=== PATIENT | female | born 1965 | race Caucasian/White ===

== ENCOUNTER 2017-04-06 16:49 | Emergency (ER) | payer OTHER ==
[~2017-04-06] VITALS: Ht 170.2 cm; Wt 133.4 kg
[~2017-04-06 16:49] MED LIST: ALDACTONE50 MG PO; AMITRIPTYLINE25 MG PO; AMITRIPTYLINE50 M1 PO; APIDRA100 U/ML SUBQ; BACLOFEN20 M1 PO; CETIRIZINE HCL10 MG PO; CETIRIZINE10 MG PO; COLACE100 M1 PO; COREG12.5 MG PO; COREG25 MG PO; COZAAR100 MG PO; DIOVAN320 MG PO; DSS100 M1 PO; FERROUS SULFATE65 MG PO; GLUCOPHAGE850 MG PO; IRON TABLETS325 MG PO; LANTUS INS100 UNITS/ SUBQ; LASIX20 MG PO; LASIX40 MG PO; LEVAQUIN500 MG PO; LIDOCAINE VISC100 M1 PO; LIORESAL10 MG PO; LOTRIMIN 1%30 GM TP; LYRICA200 MG PO; LYRICA75 MG PO; MOTRIN400 MG PO; MS-CONTIN15 MG PO; NORCO 10/325 MG1 TAB PO; OMEPRAZOLE20 M1 PO; OYSCO 500 + D 51 TAB PO; OYSCO 500500 M1 PO; PAROXETINE20 M1 PO; PAXIL20 MG PO; PREDNISONE10 M1 PO; PREDNISONE10 MG PO; PRILOSEC20 M1 PO; PROMETHAZINE D240 ML PO; REMERON15 MG PO; TRAZADONE HYDR100 MG PO; VICODIN 5/500 M1 TAB PO; ZOLPIDEM PO; ZYRTEC10 M1 PO
[2017-04-06 18:17] VITALS: BP 124/76
--- NOTE | 2017-04-06 20:00 | NUR ---
15 YO FEMALEPATIENT PRESENTS TO ED WITH UNABLE TO VOID . PT STATES PAINON VOIDING . DENIES N/V/D; SKIN IS PINK/WARM/DRY; AAOX4 WITH EVEN AND STEADY GAIT; LUNGS CLEAR BL; HR EVEN AND REGULAR; PT DENIES ANY FEVER, CP, SOB, OR COUGH AT THIS TIME; PATIENT STATES PAIN OF 10/10 AT THIS TIME; VSS; PATIENT POSITIONED FOR COMFORT; HOB ELEVATED; BEDRAILS UP X2; BED DOWN. ER MD MADE AWARE OF PT STATUS.
[2017-04-06] MEDS ORDERED: KETOROLAC 60 MG/2 ML VIAL IM ONE (20:10)
[2017-04-06] MEDS ORDERED: cefTRIAXone 1,000 MG in LIDOCAINE 1% ED 2.1 ML IM ONE (20:10)
[2017-04-06] MEDS ORDERED: PHENAZOPYRIDINE 100 MG TAB PO ONE (20:15)
--- NOTE | 2017-04-06 20:49 | NUR ---
Patient discharged with v/s stable. Written and verbal after care instructions given and explained. Patient alert, oriented and verbalized understanding of instructions. Ambulatory with steady gait. All questions addressed prior to discharge. ID band removed. Patient advised to follow up with PMD. Rx of MOTRIN, CIPRO, PYRIDIUM given. Patient educated on indication of medication including possible reaction and side effects. Opportunity to ask questions provided and answered.
[2017-04-06 20:57] VITALS: BP 124/76
== END 2017-04-06 23:49 | disposition home or self-care (01) ==
LOC: MED 16:49
DX: N12 Tubulo-interstitial nephritis, not specified as acute or chronic (principal); J45.909 Unspecified asthma, uncomplicated; I50.9 Heart failure, unspecified; E11.9 Type 2 diabetes mellitus without complications; I10 Essential (primary) hypertension
CPT/HCPCS: 81001; 81025; 87086; 87186; 96372; 99284; J0696; J1885; J2001; Q0163

== ENCOUNTER 2017-04-08 16:11 | Emergency (ER) | payer OTHER ==
[~2017-04-08] VITALS: Ht 170.2 cm; Wt 133.4 kg
[2017-04-08 16:41] VITALS: BP 143/84
--- NOTE | 2017-04-08 17:25 | NUR ---
Patient ambulated to bed 03.
[2017-04-08] MEDS ORDERED: MORPHINE SULFATE 5 MG/ML VIAL IM ONE (17:30)
[2017-04-08] MEDS ORDERED: ONDANSETRON 4 MG TAB PO ONE (17:30)
--- NOTE | 2017-04-08 17:30 | NUR ---
PT PRESENT TO ED W/ C/O BACK PAIN RADIATING TO PELVIC AREA;PRESSURE CONSTANT PAIN STARTED FRIDAY, WAS SEEN HERE LAST FRIDAY FOR THE SAME PROBLEM, BLACK TARRY STOOLS SINCE FRIDAY, HEAD ACHE 08/26, SOB X 2WK. DENIES N/V/D; SKIN IS PINK/WARM/DRY; AAOX4 WITH EVEN AND STEADY GAIT; LUNGS CLEAR BL; HR EVEN AND REGULAR; PT DENIES ANY FEVER/CP AT THIS TIME; PATIENT POSITIONED FOR COMFORT; HOB ELEVATED; BEDRAILS UP X2; BED DOWN. ALL MONITORS IN PLACED;GLAZE SUPERVISOR AT BEDSIDE.
[2017-04-08] MEDS ORDERED: ONDANSETRON 4 MG/2 ML VIAL IVP ONE (17:45)
[2017-04-08] MEDS ORDERED: MORPHINE SULFATE 4 MG/ML SYR IVP ONE (17:45)
[2017-04-08] MEDS ORDERED: diphenhydrAMINE 50 MG/ML VIAL IVP ONE (18:40)
[2017-04-08 19:23] VITALS: BP 137/78
== END 2017-04-08 19:23 | disposition home or self-care (01) ==
LOC: MED 16:11
DX: N12 Tubulo-interstitial nephritis, not specified as acute or chronic (principal); E11.9 Type 2 diabetes mellitus without complications; I50.9 Heart failure, unspecified; I10 Essential (primary) hypertension
CPT/HCPCS: 36415; 80053; 81001; 81025; 83690; 85025; 96374; 96375; 99284; J1200; J2270; J2405

== ENCOUNTER 2017-06-24 15:39 | Emergency (ER) | payer OTHER ==
[~2017-06-24] VITALS: Ht 172.7 cm; Wt 135.2 kg
[~2017-06-24 15:39] MED LIST changes: -ALDACTONE50 MG PO; -AMITRIPTYLINE25 MG PO; -AMITRIPTYLINE50 M1 PO; +APID SUBQ; -APIDRA100 U/ML SUBQ; +BACL20TA4 PO; -BACLOFEN20 M1 PO; +CALC500T19 PO; +CARV12.5 PO; -CETIRIZINE HCL10 MG PO; -CETIRIZINE10 MG PO; -COLACE100 M1 PO; -COREG12.5 MG PO; -COREG25 MG PO; -COZAAR100 MG PO; -DIOVAN320 MG PO; +DOCU-67 PO; -DSS100 M1 PO; -FERROUS SULFATE65 MG PO; +FURO-570 PO; -GLUCOPHAGE850 MG PO; +HYDR-4452 PO; +IBUP-1842 PO; -IRON TABLETS325 MG PO; +IRON65TA10 PO; -LANTUS INS100 UNITS/ SUBQ; +LANTUS SUBQ; -LASIX20 MG PO; -LASIX40 MG PO; -LEVAQUIN500 MG PO; +LEVO500T6 PO; -LIDOCAINE VISC100 M1 PO; -LIORESAL10 MG PO; +LOSA100T1 PO; +LOTC TP; -LOTRIMIN 1%30 GM TP; -LYRICA200 MG PO; -LYRICA75 MG PO; +METF850T PO; +MIRT15TA PO; -MOTRIN400 MG PO; -MS-CONTIN15 MG PO; +MSCON15 PO; -NORCO 10/325 MG1 TAB PO; +OMEP20EC6 PO; -OMEPRAZOLE20 M1 PO; -OYSCO 500 + D 51 TAB PO; -OYSCO 500500 M1 PO; +PARO-42 PO; -PAROXETINE20 M1 PO; -PAXIL20 MG PO; +PRED10TA5 PO; -PREDNISONE10 M1 PO; -PREDNISONE10 MG PO; +PREG200C PO; -PRILOSEC20 M1 PO; -PROMETHAZINE D240 ML PO; -REMERON15 MG PO; +SPIR50TA PO; -TRAZADONE HYDR100 MG PO; -VICODIN 5/500 M1 TAB PO; -ZOLPIDEM PO; -ZYRTEC10 M1 PO; +[UNRECOGNIZED DRUG - CODE] PO
[2017-06-24 15:59] VITALS: BP 124/78
--- NOTE | 2017-06-24 16:30 | NUR ---
PT AMBULATED TO ER BED 3.
--- NOTE | 2017-06-24 16:35 | NUR ---
51/F PRESENT TO ER C/O RIGHT LOWER MOLAR PAIN X 2 DAYS, HAS NOT MADE APPT WITH DENTIST YET CHRONIC LOWER BACK PAIN X 10 YRS---DENIES DYSURIA, DENIES INCONTINENCE ADDS IS SEEING A PAIN SPECIALIST BUT DOES NOT WANT AN EPIDURAL. AAOx4, PERRLA, BREATHING EVEN AND UNLABORED. ERMD NOTIFIED OF PATIENT STATUS.
--- NOTE | 2017-06-24 16:58 | NUR ---
Dr. Nieves evaluating patient at bedside.
[2017-06-24] MEDS ORDERED: KETOROLAC 60 MG/2 ML VIAL IM ONE (17:25)
--- NOTE | 2017-06-24 17:45 | NUR ---
Patient discharged with v/s stable. Written and verbal after care instructions given and explained. Patient alert, oriented and verbalized understanding of instructions. Ambulatory with steady gait. All questions addressed prior to discharge. ID band removed. Patient advised to follow up with PMD. Rx of NORCO 5/325MG AND MOTRIN 800MG TABLET given. Patient educated on indication of medication including possible reaction and side effects. Opportunity to ask questions provided and answered.
[2017-06-24 17:46] VITALS: BP 128/72
== END 2017-06-24 17:45 | disposition home or self-care (01) ==
LOC: MED 15:39
DX: K08.89 Other specified disorders of teeth and supporting structures (principal); M54.5 Low back pain; I11.0 Hypertensive heart disease with heart failure; I50.9 Heart failure, unspecified
CPT/HCPCS: 81002; 81025; 82948; 96372; 99283; J1885

== ENCOUNTER 2018-02-05 20:52 | Emergency (ER) | payer OTHER ==
[~2018-02-05] VITALS: Ht 170.2 cm; Wt 131.1 kg
[~2018-02-05 20:52] MED LIST changes: +ACET-787 PO; +CETI10TA71 PO; +DOCU-299 PO; -DOCU-67 PO; +FERR-13 PO; -HYDR-4452 PO; -IRON65TA10 PO; -[UNRECOGNIZED DRUG - CODE] PO
[2018-02-05 20:58] VITALS: BP 146/59
--- NOTE | 2018-02-05 21:03 | NUR ---
PT RETURNED TO LOBBY. URINE SAMPLE COLLECTED.
--- NOTE | 2018-02-05 21:05 | NUR ---
2104: PT AMBULATED TO BED 11
--- NOTE | 2018-02-05 21:29 | NUR ---
PATIENT PRESENTS TO ED WITH C/O VAGINAL PAIN AND PAINFUL URINATION X 1 WEEK DENIES N/V/D; AAOX4 WITH EVEN AND STEADY GAIT; LUNGS CLEAR BL; HR EVEN AND REGULAR; PT DENIES ANY FEVER, CP, SOB, OR COUGH AT THIS TIME; PATIENT STATES PAIN OF 10/10 AT THIS TIME; VSS; PATIENT POSITIONED FOR COMFORT; HOB ELEVATED; BEDRAILS UP X2; BED DOWN. ER MD MADE AWARE OF PT STATUS.
[2018-02-05] MEDS ORDERED: MORPHINE SULFATE 4 MG/ML SYR IVP ONE (22:20)
[2018-02-05] MEDS ORDERED: LEVOFLOXACIN 500 MG/D5W PREMIX 100 ML IV ONE (23:30)
[2018-02-05] MEDS ORDERED: metroNIDAZOLE 500 MG/NS PREMIX 100 ML IV ONE (23:30)
[2018-02-06] MEDS ORDERED: MORPHINE SULFATE 4 MG/ML SYR IVP ONE (01:05)
[2018-02-06 01:49] VITALS: BP 140/59
--- NOTE | 2018-02-06 01:49 | NUR ---
DC BY DR GAONA. Patient discharged with v/s stable. Written and verbal after care instructions given and explained. Patient alert, oriented and verbalized understanding of instructions. Ambulatory with steady gait. All questions addressed prior to discharge. ID band removed. Patient advised to follow up with PMD. Rx of DOXYCYCLINE 100MG, NAPROSYN 500MG given. Patient educated on indication of medication including possible reaction and side effects. Opportunity to ask questions provided and answered.
== END 2018-02-06 01:49 | disposition home or self-care (01) ==
LOC: MED 20:52
DX: N76.0 Acute vaginitis (principal); I50.9 Heart failure, unspecified; I10 Essential (primary) hypertension; M79.7 Fibromyalgia; E78.00 Pure hypercholesterolemia, unspecified
CPT/HCPCS: 36415; 87070; 87210; 96365; 96367; 96375; 96376; 99285; J1956; J2270; J3490

== ENCOUNTER 2018-04-02 17:02 | Emergency (ER) | payer OTHER ==
[~2018-04-02] VITALS: Ht 170.2 cm; Wt 129.7 kg
[2018-04-02 17:08] VITALS: BP 152/93
--- NOTE | 2018-04-02 17:11 | NUR ---
PT AMBULATES TO ER BED 8. REPORT GIVEN TO BHARATI MOSLEY
--- NOTE | 2018-04-02 17:12 | NUR ---
52/F BIB FAMILY C/O RT KNEE PAIN RADIATING TO RT ANKLE FOR 5 DAYS. DENIES INJURY. HX: DM, HTN, FIBROMYALGIA. DENIES N/V/D; SKIN IS PINK/WARM/DRY; AAOX4 WITH EVEN AND STEADY GAIT; LUNGS CLEAR BL. PT DENIES ANY FEVER, CP, SOB, OR COUGH AT THIS TIME; PATIENT STATES PAIN OF 7/10 AT THIS TIME. PATIENT POSITIONED FOR COMFORT; HOB ELEVATED; BEDRAILS UP X2; BED DOWN. ER MADE AWARE OF PT STATUS. Addendum: 04/02/18 at 1752 by [email or web address] R KNEE& R LLG SURG IN 2013
--- NOTE | 2018-04-02 17:19 | NUR ---
Patient being evaluated by DR MANLEY at bedside.
[2018-04-02] MEDS ORDERED: fentaNYL 0.05 MG/ML VIAL IM ONE (17:30)
--- NOTE | 2018-04-02 18:01 | NUR ---
Patient being reevaluated by DR MANLEY at bedside.
[2018-04-02 18:06] VITALS: BP 134/74
--- NOTE | 2018-04-02 18:06 | NUR ---
Patient discharged with v/s stable. Written and verbal after care instructions given and explained. Patient alert, oriented and verbalized understanding of instructions. Ambulatory with steady gait. All questions addressed prior to discharge. ID band removed. Patient advised to follow up with PMD. Rx of TRAMADOL, GABAPENTIN & MEDROL given. Patient educated on indication of medication including possible reaction and side effects. Opportunity to ask questions provided and answered.
== END 2018-04-02 18:06 | disposition home or self-care (01) ==
LOC: MED 17:02
DX: M54.41 Lumbago with sciatica, right side (principal); M54.42 Lumbago with sciatica, left side; I50.9 Heart failure, unspecified; E11.9 Type 2 diabetes mellitus without complications; I10 Essential (primary) hypertension; M79.7 Fibromyalgia; Z79.899 Other long term (current) drug therapy; Z79.84 Long term (current) use of oral hypoglycemic drugs
CPT/HCPCS: 81002; 81025; 82948; 96372; 99283; J3010

== ENCOUNTER 2018-08-09 18:08 | Emergency (ER) | payer OTHER ==
[~2018-08-09] VITALS: Ht 170.2 cm; Wt 115.7 kg
[2018-08-09 18:15] VITALS: BP 143/72
--- NOTE | 2018-08-09 18:25 | NUR ---
Patient ambulated to bed 8. RN evaluating patient at bedside.
--- NOTE | 2018-08-09 18:34 | NUR ---
52 YO F BIB SELF W/ C/O "FOAMING" URINATION AND FREQUENCY X 4 DAYS. DENIES DYSURIA. DENIES FEVERS. REPORTS FEELING NAUSEOUS, DENIES VOMITING. SAW PMD LAST WEEK FOR SAME REASON, GIVEN 3 DAY ANTIBIOTIC REGIMEN WHICH SHE FINISHED, WITH NO RELIEF.PT REPORTS HAVING A RUNNY NOSE/POSTNASAL DRIP X3DAYS AND BACK PAIN X6MO. PT RECEIVED FLU SHOT LAST WEEK. LS CLEAR THROUGHOUT, ABD SOFT NON TENDER. HX DM, FIBROMYALGIA, HTN RX ZOLPIDEM, TARTRATE, CARVEDILOL, INVOKANA, HCL, HYDROXYZINE, BACLOFEN, ABILIFY, HYDROCODONE, BUPROPION, CALCIUM CITRATE, LYRICA, RAMIPEXOLE, OMEPRAZOLE
--- NOTE | 2018-08-09 19:15 | NUR ---
Lisandra edge in [facility] - 08/09/18 at 2103 by MEDKARANV QUINTINVIEJose REPORT FROM LUTHER GALLARDO TRANSFER OF CARE AT THIS TIME.
--- NOTE | 2018-08-09 19:19 | NUR ---
REPORT GIVEN TO BECKY CALABRESE FOR CONTINUITY OF CARE
--- NOTE | 2018-08-09 19:20 | NUR ---
RECEIVED REPORT FROM LUTHER CALABRESE. TRANSFER OF CARE AT THIS TIME.
--- NOTE | 2018-08-09 19:21 | NUR ---
PATIENT RESTING AT THIS TIME. NO SIGNS OF DISTRESS.
--- NOTE | 2018-08-09 19:57 | NUR ---
Dr. Morton evaluating patient at bedside.
[2018-08-09 20:44] LABS: APPEARANCE,URINE CLEAR (CLEAR); BILIRUBIN,URINE NEGATIVE (NEGATIVE); BLOOD, URINE TRACE-I (NEGATIVE); COLOR,URINE YELLOW (YELLOW); LEUKOCYTE ESTERASE ,URINE NEGATIVE (NEGATIVE); NITRITE, URINE NEGATIVE (NEGATIVE); UGLUCOSE 2+ (NEGATIVE)
[2018-08-09 20:53] LABS: RBC,URINE 0-5 (RARE) /HPF (0-5); YEAST,URINE Few /HPF (None Seen)
[2018-08-09 21:05] VITALS: BP 138/80
--- NOTE | 2018-08-09 21:05 | NUR ---
Patient discharged with v/s stable. Written and verbal after care instructions given and explained. Patient alert, oriented and verbalized understanding of instructions. Ambulatory with steady gait. All questions addressed prior to discharge. ID band removed. Patient advised to follow up with PMD. Rx of KEFLEX 500MG AND AFRIN ORIGINAL 0.05% NASAL SPRAY given. Patient educated on indication of medication including possible reaction and side effects. Opportunity to ask questions provided and answered.
== END 2018-08-09 21:05 | disposition home or self-care (01) ==
LOC: MED 18:08
DX: N39.0 Urinary tract infection, site not specified (principal); J06.9 Acute upper respiratory infection, unspecified; R11.0 Nausea; E11.9 Type 2 diabetes mellitus without complications; I50.9 Heart failure, unspecified; I11.0 Hypertensive heart disease with heart failure; Z79.899 Other long term (current) drug therapy; Z79.4 Long term (current) use of insulin
CPT/HCPCS: 81001; 81025; 87086; 99284

== ENCOUNTER 2018-08-15 16:16 | Emergency (ER) | payer OTHER ==
[~2018-08-15] VITALS: Ht 170.2 cm; Wt 117.9 kg
[2018-08-15] MEDS ORDERED: LEVOFLOXACIN 500 MG/D5W PREMIX 100 ML IV ONE (16:35)
[2018-08-15] MEDS ORDERED: KETOROLAC 30 MG/ML VIAL IVP ONE (16:35)
[2018-08-15] MEDS ORDERED: NACL 0.9% 1,000 ML IV ONE (16:35)
[2018-08-15 17:01] VITALS: BP 135/92
[2018-08-15 17:28] VITALS: BP 135/92
[2018-08-15 17:34] LABS: APPEARANCE,URINE CLEAR (CLEAR); BASOPHILS % (AUTO) 0.4 % (0.0-2.0); BILIRUBIN,URINE NEGATIVE (NEGATIVE); BLOOD, URINE NEGATIVE (NEGATIVE); COLOR,URINE YELLOW (YELLOW); EOSINOPHILS # (AUTO) 0.2 K/uL (0-0.4); EOSINOPHILS % (AUTO) 2.5 % (0.0-4.0); HEMATOCRIT 39.5 % (36-48); HEMOGLOBIN 12.7 g/dL (12.0-16.0); LEUKOCYTE ESTERASE ,URINE NEGATIVE (NEGATIVE); LYMPHOCYTES # (AUTO) 2.3 K/uL (2.5-16.5); LYMPHOCYTES % (AUTO) 29.9 % (20.5-51.1); MEAN CORPUSCULAR HEMOGLOBIN 27 pg (27-31); MEAN CORPUSCULAR HGB CONC 32 g/dL (33-37); MEAN CORPUSCULAR VOLUME 84.8 fL (80-94); MONOCYTES # (AUTO) 0.5 K/uL (0.8-1.0); MONOCYTES % (AUTO) 6.4 % (1.7-9.3); NEUTROPHILS # (AUTO) 4.7 K/uL (1.8-7.7); NEUTROPHILS % (AUTO) 60.8 % (42.2-75.2); NITRITE, URINE NEGATIVE (NEGATIVE); PLATELET COUNT (AUTO) 231 K/uL (140-450); RED BLOOD CELL COUNT(AUTO) 4.66 MIL/uL (4.20-5.40); RED CELL DISTRIBUTION WIDTH 16.9 % (11.6-13.7); UGLUCOSE 3+ (NEGATIVE); WHITE BLOOD COUNT (AUTO) 7.8 K/uL (4.8-10.8)
[2018-08-15 17:39] LABS: ANION GAP 9.9 (8-16); CARBON DIOXIDE 30.9 mmol/L (21-32); POTASSIUM 3.8 mmol/L (3.5-5.1)
[2018-08-15 17:45] LABS: ALBUMIN 3.3 g/dL (3.4-5.0); TOTAL BILIRUBIN 0.2 mg/dL (0.0-1.0)
== END 2018-08-15 17:28 | disposition home or self-care (01) ==
LOC: MED 16:16
DX: J06.9 Acute upper respiratory infection, unspecified (principal); I11.0 Hypertensive heart disease with heart failure; I50.9 Heart failure, unspecified; E11.9 Type 2 diabetes mellitus without complications; Z79.899 Other long term (current) drug therapy
CPT/HCPCS: 36415; 80053; 81003; 82150; 82948; 83690; 85025; 99284

== ENCOUNTER 2019-06-17 13:22 | Emergency (ER) | payer OTHER ==
[~2019-06-17] VITALS: Ht 170.2 cm; Wt 132.9 kg
[~2019-06-17 13:22] MED LIST changes: -OMEP20EC6 PO; +OMEP20EC9 PO
[2019-06-17 13:34] VITALS: BP 145/98
--- NOTE | 2019-06-17 13:38 | NUR ---
PT TO WAIT IN ER LOBBY FOR CLEAN BED. VSS. AA0X4
--- NOTE | 2019-06-17 13:47 | NUR ---
Patient taken to bed 4
--- NOTE | 2019-06-17 13:54 | NUR ---
BILATERAL KNEE AND BACK OF HEAD PAIN AFTER FALL X 2 DAYS AGO. DENEIS TAKING ANY BLOOD THINNERS. DENIES LOC. PAIN 06/26. DENIES N/V/D; SKIN IS PINK/WARM/DRY; VSS; PATIENT POSITIONED FOR COMFORT; HOB ELEVATED; BEDRAILS UP X1; BED DOWN. ER MD MADE AWARE OF PT STATUS.
[2019-06-17] MEDS ORDERED: MORPHINE SULFATE 4 MG/ML SYR IM ONE (15:55)
--- NOTE | 2019-06-17 16:35 | NUR ---
Patient discharged with v/s stable. Written and verbal after care instructions given and explained. Patient alert, oriented and verbalized understanding of instructions. Ambulatory with steady gait. All questions addressed prior to discharge. ID band removed. Patient advised to follow up with PMD. Rx of Hudgins 5mg-325mg given. Patient educated on indication of medication including possible reaction and side effects. Opportunity to ask questions provided and answered.
[2019-06-17 16:36] VITALS: BP 138/79
== END 2019-06-17 16:35 | disposition home or self-care (01) ==
LOC: MED 13:22
DX: M25.561 Pain in right knee (principal); M25.562 Pain in left knee; M79.10 Myalgia, unspecified site; I11.0 Hypertensive heart disease with heart failure; I50.9 Heart failure, unspecified; E11.9 Type 2 diabetes mellitus without complications; Z98.890 Other specified postprocedural states; Z79.4 Long term (current) use of insulin; Z79.899 Other long term (current) drug therapy; Z98.84 Bariatric surgery status; W19.XXXA Unspecified fall, initial encounter; Y93.89 Activity, other specified; Y92.89 Other specified places as the place of occurrence of the external cause; Y99.8 Other external cause status
CPT/HCPCS: 73562; 81002; 81025; 96372; 99283; J2270; Q0092

== ENCOUNTER 2020-09-26 16:08 | Inpatient (IN) | payer OTHER, SELFPAY ==
[~2020-09-26] VITALS: Ht 170.2 cm; Wt 121.6 kg
[~2020-09-26 16:08] MED LIST changes: -ACET-787 PO; +HYDR-5191 PO; +MIRT-91 PO; -MIRT15TA PO
--- NOTE | 2020-09-26 16:30 | NUR ---
Patient taken to wheelchair by tech. RN evaluating patient at bedside.
[2020-09-26 16:32] VITALS: BP 89/44
[2020-09-26] MEDS ORDERED: NACL 0.9% 2,000 ML IV ONE (16:40)
[2020-09-26] MEDS ORDERED: cefTRIAXone 1,000 MG in DEXT 5% MINI-BAG PLUS 50 ML IV ONE (16:40)
[2020-09-26] MEDS ORDERED: cefTRIAXone 1,000 MG VIAL ONE (16:46)
--- NOTE | 2020-09-26 16:50 | NUR ---
55 Y/O FEMALE PRESENTS TO ED C/C ABD PAIN AND GEN WEAKNESS X3 DAYS. PATIENT UNABLE TO AMBULATE D/T DIZZINESS AND WEAKNESS. DENIES COUGH, N/V/D. SUBJECTIVE FEVER. AAOX4.SPEACH IS MUMBLED/ DIFFICULT TO UNDERSTAND, INCREASED WOB, TACHYPNIC/TACHYCARDIC, EYES PERRLA. BLOOD GLUCOSE ON ADMISSION READS HIGH, DR. URBANO NOTIFIED. PMH:HTN, DM, fibromyalgia, sleep apnea, CHF NKDA
[2020-09-26 16:55] LABS: HEMATOCRIT 37.8 % (36-48); HEMOGLOBIN 11.6 g/dL (12.0-16.0); MEAN CORPUSCULAR HEMOGLOBIN 28 pg (27-31); MEAN CORPUSCULAR HGB CONC 31 g/dL (33-37); MEAN CORPUSCULAR VOLUME 92.1 fL (80-94); PLATELET COUNT (AUTO) 117 K/uL (140-450); RED BLOOD CELL COUNT(AUTO) 4.11 MIL/uL (4.20-5.40); RED CELL DISTRIBUTION WIDTH 17.8 % (11.6-13.7); WHITE BLOOD COUNT (AUTO) 21.1 K/uL (4.8-10.8)
--- NOTE | 2020-09-26 16:55 | NUR ---
LABS/CULTURES DRAWN. IV 20G RIGHT FOREARM/ 20G LEFT AC STARTED, ON 2L NC, PT STABLE AT THIS TIME WILL CONTINUE TO MONITOR
--- NOTE | 2020-09-26 16:56 | NUR ---
EKG COMPLETED BY EMT
--- NOTE | 2020-09-26 16:57 | NUR ---
RT AT BEDSIDE
[2020-09-26 16:58] LABS: BILIRUBIN,URINE NEGATIVE (NEGATIVE); BLOOD, URINE 2+ (NEGATIVE); COLOR,URINE YELLOW (YELLOW); LEUKOCYTE ESTERASE ,URINE 1+ (NEGATIVE); NITRITE, URINE NEGATIVE (NEGATIVE); PH,URINE 5.5 (5.0-9.0); UGLUCOSE 3+ (NEGATIVE)
--- NOTE | 2020-09-26 16:58 | NUR ---
Dr. Nieves is evaluating the patient at bedside.
--- NOTE | 2020-09-26 16:59 | NUR ---
XRAY AT BEDSIDE
[2020-09-26 17:01] LABS: APPEARANCE,URINE CLOUDY (CLEAR)
[2020-09-26] MEDS ORDERED: MORPHINE SULFATE 4 MG/ML SYR IVP ONE (17:05)
[2020-09-26 17:17] LABS: RBC,URINE 0-5 /HPF (0-5); WBC,URINE 80-100 /HPF (0-5)
[2020-09-26 17:23] LABS: ALBUMIN 2.1 g/dL (3.4-5.0); ANION GAP 23.8 (8-16); CARBON DIOXIDE 15.3 mmol/L (21-32); POTASSIUM 3.1 mmol/L (3.5-5.1); TOTAL BILIRUBIN 0.5 mg/dL (0.0-1.0)
[2020-09-26] MEDS ORDERED: POTASSIUM CHL 20 MEQ/NACL 0.9% 1,000 ML IV ONE (17:30)
[2020-09-26 17:44] LABS: LYMPHOCYTES % (MANUAL) 4 % (20-46); MONOCYTES % (MANUAL) 3 % (5-12)
[2020-09-26] MEDS ORDERED: ERTU5TAB PO (18:25)
[2020-09-26] MEDS ORDERED: BUPR-160 PO (18:25)
[2020-09-26] MEDS ORDERED: LISI5TAB18 PO (18:25)
[2020-09-26] MEDS ORDERED: BUPR300T70 PO (18:25)
[2020-09-26] MEDS: BLOOD GLUCOSE MONITORING 1 DEV DEV FS SCH ×6 (18:25→23:25)
[2020-09-26] MEDS ORDERED: LORazepam 1 MG TAB PO PRN (18:25)
[2020-09-26] MEDS ORDERED: ZOLPIDEM 5 MG TAB PO PRN (18:25)
[2020-09-26] MEDS ORDERED: LID5T TP (18:25)
[2020-09-26] MEDS ORDERED: NACL 0.9% 1,000 ML IV SCH ×2 (18:25→23:25)
[2020-09-26] MEDS ORDERED: DIT5 PO (18:25)
[2020-09-26] MEDS ORDERED: INSULIN REGULAR, HUMAN 100 UNIT in NACL 0.9% 100 ML IV SCH ×2 (18:25)
[2020-09-26] MEDS ORDERED: DULO30EC PO (18:25)
[2020-09-26] MEDS ORDERED: PREG300C PO (18:25)
[2020-09-26] MEDS ORDERED: ATOR40TA PO (18:25)
--- NOTE | 2020-09-26 18:32 | NUR ---
Dr. Dunn is evaluating the patient at bedside.
[2020-09-26] MEDS ORDERED: POTASSIUM CHL 40 MEQ/ D5-1/2NS 1,000 ML IV SCH (18:35)
[2020-09-26] MEDS ORDERED: MAGNESIUM OXIDE 400 MG TAB PO PRN (18:35)
[2020-09-26] MEDS ORDERED: KCL 20 MEQ/WATER INJ PREMIX 200 ML IV PRN (18:35)
[2020-09-26] MEDS ORDERED: MAG SULF 2000 MG/WATER PREMIX 50 ML IV PRN (18:35)
[2020-09-26] MEDS ORDERED: NACL 0.9% 1,000 ML IV ONE (18:45)
[2020-09-26] MEDS ORDERED: ALBUMIN HUMAN 5 % 250 ML IV SCH (18:50)
[2020-09-26] MEDS ORDERED: NOREPINEPHRINE 4 MG in DEXTROSE 5% 250 ML IV ONE (18:55)
[2020-09-26] MEDS ORDERED: NOREPINEPHRINE 4 MG/4 ML VIAL IV ONE (18:56)
--- NOTE | 2020-09-26 19:25 | NUR ---
Dr. Landry examining patient.
--- NOTE | 2020-09-26 19:28 | NUR ---
RECEIVED REPORT FROM [facility] NURSE. DR. MANLEY AT BEDSIDE FOR CENTRAL LINE INSERTION. PT ON NASAL CANNULA 2L. LAC 20G, RFA 20G. PT NOTED WITH WEAKNESS, ABLE TO FOLLOW SOME SIMPLE COMMANDS. VITALS WITHIN RANGE, WILL START PENDING ORDERS. SAFETY MEASURES IN PLACE. RN's AT BEDSIDE.
--- NOTE | 2020-09-26 19:46 | NUR ---
X-Ray at bedside.
--- NOTE | 2020-09-26 19:53 | NUR ---
Ultrasound at bedside.
[2020-09-26 19:59] LABS: MAGNESIUM 1.3 mg/dL (1.8-2.4); PHOSPHORUS 4.4 mg/dL (2.5-4.9)
[2020-09-26 20:09] LABS: ANION GAP 20.6 (8-16); CARBON DIOXIDE 17.1 mmol/L (21-32); POTASSIUM 3.7 mmol/L (3.5-5.1)
--- NOTE | 2020-09-26 20:10 | NUR ---
PT STARTED ON LEVOPHED DRIP, VERIFIED WITH SECOND NURSE.
[2020-09-26 20:12] LABS: CREATININE 4.8 mg/dL (0.6-1.3)
--- NOTE | 2020-09-26 21:15 | NUR ---
ASSISTED PT WITH BEDPAN. PT UNABLE TO VOID, APPLIED JOHN PADS.
--- NOTE | 2020-09-26 22:15 | NUR ---
PT TAKEN TO ICU 5 WITH PRIMARY NURSE AND EMT.
[2020-09-26 22:20] VITALS: BP 112/54
--- NOTE | 2020-09-26 22:20 | NUR ---
RECEIVED REPORT FROM ED NURSE SANDY. PT IS A&O X [address] WHEN AWAKE, PT IS DROWSY/LETHARGIC. MONITOR ATTACHED, SINUS TACHY NOTED. RT IJ TRIPLE LUMEN CENTRAL CATH RUNNING LEVOPHED 10 MCG/MIN AND D5 1/2 NS WITH 20 mEq POTASSIUM RUNNING AT 80 ML/HR AND ALBUMIN IN D5% RUNNING AT 100 ML/HR. INTACT AND PATENT, NO S/S OF INFILTRATION OR REDNESS NOTED. PERIPHERAL IV ACCESS TO RT FA 20G, SALINE LOCK. LT AC 20G SALINE LOCK. BOTH PERIPHERAL IV ARE INTACT AND PATENT, NO S/S OF INFILTRATION OR REDNESS NOTED.LUNGS ARE CLEAR PER AUSCULTATION. NC 3 LPM. PT IS NPO PER MD ORDER. BOWEL SOUNDS ACTIVE. EXCORIATION TO THE ABDOMINAL FOLD AND UNDER BREASTS. SKIN OTHERWISE INTACT. SKIN WARM AND DRY. SAFETY PRECAUTIONS IN PLACE, BED LOW AND LOCKED, SIDE RAILS UP, ROOM FREE OF CLUTTER, CALL LIGHT WITHIN REACH, WILL CONTINUE TO MONITOR.
--- NOTE | 2020-09-26 22:20 | NUR ---
Patient will be admitted to care of DR. POST. Admited to ICU. Will go to [facility] ICU 5. Belongings list completed. Report to BHARATI MUNOZ.
[2020-09-26 22:45] VITALS: BP 109/64
[2020-09-26] MEDS ORDERED: PIPERACILLIN/TAZOBACTAM 2.25 GM VIAL IV ONE (22:57)
[2020-09-26 23:00] VITALS: BP 119/70
[2020-09-26] MEDS: PIPERACILLIN/TAZOBACTAM 2.25 GM in DEXTROSE 5% 50 ML IV SCH (23:04)
[2020-09-26 23:15] VITALS: BP 106/58
[2020-09-26 23:30] VITALS: BP 116/68
[2020-09-27] VITALS (36 sets, daily range): BP systolic 87–140; BP diastolic 36–82
[2020-09-27] MEDS ORDERED: PIPERACILLIN/TAZOBACTAM 3.375 GM in DEXTROSE 5% 50 ML IV SCH ×2
--- NOTE | 2020-09-27 00:20 | NUR ---
SPOKE TO DR. YANG AND UPDATED ABOUT PT'S CRITICAL GLUCOSE RESULTS. CHANGED THE INSULIN DRIP TO 0.1 UNITS/KG/HR. NO CHANGE IN FLUIDS AT THIS TIME. WILL CONTINUE TO MONITOR BS.
[2020-09-27] MEDS: BLOOD GLUCOSE MONITORING 1 DEV DEV FS SCH ×22 (00:25→23:25)
[2020-09-27 00:42] LABS: MAGNESIUM 1.4 mg/dL (1.8-2.4); PHOSPHORUS 5.5 mg/dL (2.5-4.9)
[2020-09-27 00:56] LABS: ANION GAP 19.1 (8-16); CARBON DIOXIDE 16.5 mmol/L (21-32); POTASSIUM 3.6 mmol/L (3.5-5.1)
[2020-09-27 00:59] LABS: CREATININE 4.8 mg/dL (0.6-1.3)
--- NOTE | 2020-09-27 01:15 | NUR ---
16F RAMÍREZ CATHETER PLACED PER MD ORDER. URINE RETURN OF 750ML. URINE IS YELLOW AND CLOUDY.
[2020-09-27] MEDS ORDERED: NOREPINEPHRINE 4 MG/4 ML VIAL IV ONE (03:33)
[2020-09-27] MEDS: ACETAMINOPHEN 325 MG TAB PO PRN ×2 (04:12→19:20)
--- NOTE | 2020-09-27 04:12 | NUR ---
PT'S LATEST TEMP: 101.7. TYLENOL GIVEN ORDERED. COOLING MEASURES IN PLACE. TURNED AND REPOSITIONED PT. WILL CONTINUE TO MONITOR.
[2020-09-27] MEDS ORDERED: PIPERACILLIN/TAZOBACTAM 2.25 GM VIAL IV ONE (04:37)
--- NOTE | 2020-09-27 05:00 | NUR ---
TEMP. 99.0, COOLING MEASURES IN PLACE. MORNING CARE PROVIDED. PT DENIES PAIN. WILL CONTINUE TO MONITOR.
[2020-09-27] MEDS: PIPERACILLIN/TAZOBACTAM 2.25 GM in DEXTROSE 5% 50 ML IV SCH ×3 (05:16→20:19)
[2020-09-27] MEDS ORDERED: NOREPINEPHRINE 4 MG in DEXTROSE 5% 250 ML IV PRN (05:20)
[2020-09-27] MEDS: INSULIN REGULAR, HUMAN 100 UNIT in NACL 0.9% 100 ML IV SCH ×2 (05:45)
[2020-09-27 06:10] LABS: HEMATOCRIT 37.6 % (36-48); HEMOGLOBIN 12.3 g/dL (12.0-16.0); MEAN CORPUSCULAR HEMOGLOBIN 29 pg (27-31); MEAN CORPUSCULAR HGB CONC 33 g/dL (33-37); PLATELET COUNT (AUTO) 102 K/uL (140-450); RED BLOOD CELL COUNT(AUTO) 4.32 MIL/uL (4.20-5.40); RED CELL DISTRIBUTION WIDTH 17.1 % (11.6-13.7); WHITE BLOOD COUNT (AUTO) 18.1 K/uL (4.8-10.8)
[2020-09-27 06:54] LABS: ALBUMIN 2.1 g/dL (3.4-5.0); ANION GAP 21.3 (8-16); CARBON DIOXIDE 16.8 mmol/L (21-32); MAGNESIUM 1.4 mg/dL (1.8-2.4); PHOSPHORUS 3.5 mg/dL (2.5-4.9); POTASSIUM 3.1 mmol/L (3.5-5.1); TOTAL BILIRUBIN 0.5 mg/dL (0.0-1.0)
[2020-09-27 06:57] LABS: CREATININE 4.7 mg/dL (0.6-1.3)
[2020-09-27 07:00] LABS: LYMPHOCYTES % (MANUAL) 4 % (20-46); MONOCYTES % (MANUAL) 5 % (5-12)
--- NOTE | 2020-09-27 07:00 | NUR ---
LATEST GLUCOSE. 95. HELD INSULIN DRIP AT TIS TIME. PAGED DR. YANG. AWAITING FOR RETURN CALL.
--- NOTE | 2020-09-27 07:03 | NUR ---
INSULIN DRIP NOW @ 0.05UNITS/KG/HR (7MLS/HR). WILL CONTINUE TO MONITOR BS.
--- NOTE | 2020-09-27 07:03 | NUR ---
SPOKE TO DR. YANG. STATED CONTINUE WITH THE INSULIN DRIP AND GIVE D5 NS @ 100ML/HR IF BS<200. UPDATED ABOUT PT'S CONDITION. WILL CONTINUE TO MONITOR.
--- NOTE | 2020-09-27 07:15 | NUR ---
ENDORSED PT TO DAY SHIFT RN FOR CONTINUITY OF CARE.
--- NOTE | 2020-09-27 07:30 | NUR ---
RECEIVED REPORT FROM PERI PT SLEEPING IN BED O2 3L NS IV FLUID HAS TLC ON RT SUBCLAVIEN INFUSING D5 NS AT 100ML/HR AND LEVPHED AT 2MCG/HR.SHE HAS RAMÍREZ CATH DRAIN SMALL AMOUT OF CLOUDY URINE.
--- NOTE | 2020-09-27 08:30 | NUR ---
BLOOD GLUCOSE 95 NO CHANGE IN INSULIN DRIP.
--- NOTE | 2020-09-27 08:33 | NUR ---
PATIENT HAS BEEN SCREENED AND CATEGORIZED HIGH NUTRITION RISK. PATIENT WILL BE SEEN WITHIN 1-2 DAYS OF ADMISSION. 09/27/20-09/28/[address]
[2020-09-27 08:38] LABS: ANION GAP 20.7 (8-16); CARBON DIOXIDE 17.3 mmol/L (21-32)
[2020-09-27 08:49] LABS: CREATININE 4.4 mg/dL (0.6-1.3)
[2020-09-27] MEDS: DOCUSATE SODIUM 100 MG GELCAP PO SCH (08:57)
[2020-09-27] MEDS: PANTOPRAZOLE 40 MG INJ VIAL IVP SCH (08:57)
[2020-09-27 09:27] LABS: MAGNESIUM 1.4 mg/dL (1.8-2.4); PHOSPHORUS 3.7 mg/dL (2.5-4.9)
--- NOTE | 2020-09-27 09:30 | NUR ---
ORAL CARE GIVEN. REPOSITION SKIN CARE GIVEN,
--- NOTE | 2020-09-27 10:00 | NUR ---
SEEN BY GILMAR TOM AT BED SIDE, ORDER RECEIVED,COSULT DR. MELENDEZ ,NEPHRO'
--- NOTE | 2020-09-27 10:17 | NUR ---
DISCHARGE PLANNING: THIS IS A 55 Y/O FEMALE PATIENT FROM HOME, WHO CAME IN DUE TO GENERALIZED WEAKNESS WITH FEVERS AND CHILLS. PAST MEDICAL HISTORY INCLUDE HTN, CKD, DM, INSULIN DEPENDENT, ANXIETY/DEPRESSION AND CHRONIC PAIN SYNDROME. INITIAL DIAGNOSIS OF DKA, SEPSIS. CURRENT LABS INCLUDE WBC 18.1, H/H 12.3/37.6, NA/K 138/3.0, BUN/CREA 49/4.4, MAG 1.4, BNP 569. NEGATIVE FOR INF A AND B AND RAPID COVID. ON ZOSYN. ON INSULIN DRIP - ANION GAP 20.7, BS 99. ON LEVOPHED DRIP - BP 120/53. CRITICAL CARE CONSULT WITH PULMO. ON O2 AT 3LPM/NC, O2 SAT 95%. DC PLAN PENDING ON PATIENT'S RESPONSE TO TREATMENT. Addendum: 10/02/20 at 1543 by Kay Martel RN DC PLANNING: S/P ERCP BY DR AVALOS INDICATED THAT SHE WOULD NEED MRCP AND OUT PATIENT FOLLOW UP FOR FURTHER EVALUATION AND [facility]. DKA RESOLVED BLOOD GLUCOSE 160. SEEN BY DR CARPIO AND CELL TENDER HELPER CONTINUE ZOSYN AND TAZOBACTAM. DC PLAN TO GO HOME WHEN STABLE. CM TO FOLLOW Addendum: 10/03/20 at 1541 by Emma Del Toro CM KARAN FAM: SCHEDULED PATIENT A FOLLOW UP APPOINTMENT WITH PCP SANIA REDDY. APPOINTMENT WILL BE A TELE-MEDICINE APPT ON Friday AT 2:15 PM. AT THIS TIME THE PATIENT WILL BE ABLE TO BE REFERRED BY HER PCP FOR AN OUT PATIENT MRCP. FAXED PATIENTS CLINICALS TO PCP OFFICE. Addendum: 10/03/20 at 1646 by Emma Del Toro CM KARAN FAM: PROVIDED PATIENT WITH APPOINTMENT REMINDER.
--- NOTE | 2020-09-27 11:30 | NUR ---
BLOOD GLUCOSE 90 INSULIN DRIP REMAIN THE SAME,
--- NOTE | 2020-09-27 12:15 | NUR ---
SOCIAL WORK NOTE: Patient's Orientation Unable To Assess Information Provided By JAMEY ARNDT - SON Comments SW WAS UNABLE TO MEET PATIENT AT BEDSIDE DUE TO MEDICAL CONDITION. SW COMPLETED ASSESSMENT WITH PATIENT'S SON, JAMEY. JAMEY PROVIDED ADDITIONAL CONTACT INFORMATION FOR POOJA ARNDT, DAUGHTER IN LAW. Steel Inspector, Realtionship and Phone Number JAMEY COLUNGA [phone] YUNIEL RANGEL [id number] [phone] Healthcare Power of Teletype Clerk No Does Patient Have a POLST No Identifying Problems No Social Work Triggers Is A Social Work Consult Needed No Mandate Report Filed No Explanation Of Identifying Problems PATIENT IS A 55-YEAR-OLD FEMALE ADMITTED FOR DIABETIC KETOACIDOSIS. PATIENT HAS PMHX OF CHF, DIABETES, AND HYPERTENSION. PER SON, PATIENT HAS NO HISTORY OF MENTAL HEALTH OR SUBSTANCE ABUSE. Admitted From Home Pre-Admission Level Of Functioning Status Independent/Ambulatory Prior Resources/Services Used In Last 12 Months No Prior Resources Used Prior DME No Prior DME Used Dialysis Comments N/A Living Situation House Patient Had Caregiver No Home Support No Caregiver Issues Financial Issues No Known Financial Issue Referral To The Financial Counselor Needed No Factors/Needs No D/C Needs Identified Explanation And Or Other Factors Affecting/Possible DC Needs PATIENT'S SON STATED THAT SHE WILL COORDINATE TRANSPORTATION FOR PATIENT AT DISCHARGE. Pt/Rep Participated In Discharge Plan Yes Discharge Plan Comments TENTATIVE DISCHARGE PLAN IS FOR PATIENT TO RETURN HOME.
[2020-09-27] MEDS: POTASSIUM CHLORIDE 10 MEQ TABER PO PRN (12:30)
[2020-09-27 12:43] LABS: ANION GAP 15.6 (8-16); CARBON DIOXIDE 21.3 mmol/L (21-32)
[2020-09-27 12:48] LABS: POTASSIUM 2.9 mmol/L (3.5-5.1)
[2020-09-27 12:49] LABS: CREATININE 4.6 mg/dL (0.6-1.3)
--- NOTE | 2020-09-27 14:03 | NUR ---
09/27/20 RD INITIAL ASSESSMENT COMPLETED PLEASE REFER TO NUTRITION ASSESSMENT UNDER CARE ACTIVITY FOR ESTIMATED NUTRITIONAL NEEDS. 1. CONTINUE CLEAR LIQUID DIET TOLERATED 2. [facility] WHEN MEDICALLY STABLE 3. RD PROVIDED DIABETES NUTRITION EDUCATION HANDOUT. 4. RD TO FOLLOW-UP 2-3 DAYS, HIGH RISK TYREL CARPENTER RD
--- NOTE | 2020-09-27 14:30 | NUR ---
seen by dr NORA HALE.
--- NOTE | 2020-09-27 14:40 | NUR ---
LASIX 60 MG IVP GIVEN X1.
[2020-09-27] MEDS ORDERED: FUROSEMIDE 100 MG/10 ML VIAL IV SCH (15:00)
--- NOTE | 2020-09-27 15:00 | NUR ---
ABLE TO DRINK 100ML APPLE JUICE.
[2020-09-27 16:39] LABS: CREATININE 4.5 mg/dL (0.6-1.3)
[2020-09-27] MEDS ORDERED: POTASSIUM CHLORIDE 10 MEQ TABER PO ONE (17:45)
--- NOTE | 2020-09-27 18:00 | NUR ---
GIVE JELLO AND APPLE JUICE SWALLOW SLOWLY/
[2020-09-27] MEDS: DEXT 5% /NACL 0.9% 1,000 ML IV SCH (18:32)
--- NOTE | 2020-09-27 19:30 | NUR ---
RECEIVED PT FROM DAYSHIFT RN, AT BEDSIDE, FOR CONTINUITY OF CARE. PT ASLEEP, EASILY AROUSED. A/O X4, C/O GEN BODY ACHES @ 3/10 ON ADULT SCALE. SPO2 WNL ON RA. LUNGS CLEAR THROUGHOUT. + S1, S2 UPON AUSCULTATION. ABD LARGE, NON-TENDER, NON-DISTENDED. BOWEL SOUNDS ACTIVE X4. RAMÍREZ IN PLACE DRAINING CLEAR, YELLOW-URINE TO GRAVITY. RT SUBCLAVIAN CENTRAL LINE IN PLACE INFUSING REGULAR INSULIN DRIP @ 0.05 U/KG/HR (7 ML/HR) AND LEVOPHED @ 2 MCG/MIN (7.5 ML/H) (CONC:4MG/250ML) AND D5 NS @ 50 ML/HR. 20G PERIPHERAL IV TO RT FA, PATENT. 20G PERIPHERAL IV TO LT AC, PATENT. SKIN WARM, DR, AND INTACT. WILL FOLLOW-UP WITH PAIN RELIEF.
--- NOTE | 2020-09-27 19:30 | NUR ---
PT AWAKE ALL IV DRY AND INTACT REPORT GIVE TO JAVY AT BEDSIDE.
[2020-09-27 21:38] LABS: ANION GAP 17.8 (8-16); CARBON DIOXIDE 17.6 mmol/L (21-32); POTASSIUM 3.4 mmol/L (3.5-5.1)
[2020-09-27 21:42] LABS: CREATININE 4.6 mg/dL (0.6-1.3)
[2020-09-28] VITALS (12 sets, daily range): BP systolic 89–119; BP diastolic 48–90
--- NOTE | 2020-09-28 | NUR ---
REPOSITIONED PT WITH PRESSURE AREAS OFFLOADED. FLUIDS OFFERED AND ENCOURAGED. WILL CONT TO MONITOR.
[2020-09-28] MEDS: BLOOD GLUCOSE MONITORING 1 DEV DEV FS SCH ×12 (01:00→21:25)
--- NOTE | 2020-09-28 02:00 | NUR ---
PT RESTING IN BED, EASILY AROUSED. REFUSED REPOSITIONING AT THIS TIME. EDUCATED ON IMPORTANCE OF MAINTAINING SKIN INTEGRITY. WILL CONT TO MONITOR FOR CHANGES.
[2020-09-28] MEDS: HYDROcodone/APAP 5/325 MG 1 TAB TAB PO PRN ×2 (02:27→13:57)
--- NOTE | 2020-09-28 04:00 | NUR ---
BED BATH PROVIDED @ THIS TIME. ALL DUE MEDICATIONS ADMINISTERED ORDERED. WILL CONT TO MONITOR.
[2020-09-28] MEDS: PIPERACILLIN/TAZOBACTAM 2.25 GM in DEXTROSE 5% 50 ML IV SCH ×3 (05:00→20:49)
[2020-09-28 05:37] LABS: BASOPHILS % (AUTO) 0.3 % (0.0-2.0); EOSINOPHILS # (AUTO) 0.1 K/uL (0-0.4); EOSINOPHILS % (AUTO) 1.2 % (0.0-4.0); HEMATOCRIT 34.7 % (36-48); HEMOGLOBIN 11.3 g/dL (12.0-16.0); LYMPHOCYTES # (AUTO) 0.6 K/uL (2.5-16.5); LYMPHOCYTES % (AUTO) 5.2 % (20.5-51.1); MEAN CORPUSCULAR HEMOGLOBIN 28 pg (27-31); MEAN CORPUSCULAR HGB CONC 33 g/dL (33-37); MEAN CORPUSCULAR VOLUME 86.1 fL (80-94); MONOCYTES # (AUTO) 0.8 K/uL (0.8-1.0); MONOCYTES % (AUTO) 6.4 % (1.7-9.3); NEUTROPHILS # (AUTO) 10.6 K/uL (1.8-7.7); NEUTROPHILS % (AUTO) 86.9 % (42.2-75.2); PLATELET COUNT (AUTO) 90 K/uL (140-450); RED BLOOD CELL COUNT(AUTO) 4.03 MIL/uL (4.20-5.40); RED CELL DISTRIBUTION WIDTH 17.7 % (11.6-13.7); WHITE BLOOD COUNT (AUTO) 12.2 K/uL (4.8-10.8)
[2020-09-28 06:31] LABS: ALBUMIN 1.7 g/dL (3.4-5.0); ANION GAP 22.7 (8-16); CARBON DIOXIDE 15.7 mmol/L (21-32); MAGNESIUM 1.9 mg/dL (1.8-2.4); PHOSPHORUS 4.1 mg/dL (2.5-4.9); POTASSIUM 3.4 mmol/L (3.5-5.1); TOTAL BILIRUBIN 0.9 mg/dL (0.0-1.0)
[2020-09-28 06:51] LABS: CREATININE 4.4 mg/dL (0.6-1.3)
--- NOTE | 2020-09-28 07:15 | NUR ---
REPORT GIVEN TO DAYSHIFT NURSE, AT BEDSIDE, FOR CONTINUITY OF CARE.
--- NOTE | 2020-09-28 07:20 | NUR ---
RECEIVE REPORT FROM JAVY LEDBETTER, PT. IS AWAKE AND ALERT AT THE TIME CENTRAL LINE ON RT SUB CRAVIEN INFUSING INSULIN AT 0.05UNIT/KG/HO . AND NS AT 50 ML/HR , 03 3L NC. ABDOMEN LARGE AND FIRM, HAS PAIN WHEN TOUCH. RAMÍREZ CATH DRAIN YELLOW URINE.
[2020-09-28] MEDS: POTASSIUM CHLORIDE 10 MEQ TABER PO PRN ×2 (07:34→22:33)
--- NOTE | 2020-09-28 07:45 | NUR ---
BLOOD GLUCOSE 224 INSULIN DRIP UP TO 0.1 UNIT/KG/HR.
--- NOTE | 2020-09-28 08:30 | NUR ---
AWAKE ABLE EAT BREAKFAST NO NAUSER OR VOMITTING..
[2020-09-28] MEDS: PANTOPRAZOLE 40 MG INJ VIAL IVP SCH (08:55)
[2020-09-28] MEDS: DOCUSATE SODIUM 100 MG GELCAP PO SCH (08:56)
--- NOTE | 2020-09-28 09:30 | NUR ---
VISIT BY DR YANG AT BED SIDE, NO ORDER RECEIVED.
[2020-09-28] MEDS: SODIUM BICARBONATE 8.4% 100 MEQ in DEXT 5% / NACL 0.45% 1,000 ML IV SCH (09:53)
[2020-09-28] MEDS: INSULIN REGULAR, HUMAN 100 UNIT in NACL 0.9% 100 ML IV SCH ×2 (11:17)
--- NOTE | 2020-09-28 14:20 | NUR ---
SEEN BY DR MELENDEZ ORDER RECEIVED , HE ORDER U/S BLADDER , WILL BE DONE,.
--- NOTE | 2020-09-28 14:23 | NUR ---
RD PROVIDED NUTRITION EDUCATION ON DIABETES TO AHOFOTLN-OG-UAV MOHSEN. ALL QUESTIONS AND CONCERNS WERE ANSWERED.
[2020-09-28 15:10] LABS: ANION GAP 18.9 (8-16); CARBON DIOXIDE 17.7 mmol/L (21-32); POTASSIUM 3.6 mmol/L (3.5-5.1)
[2020-09-28 15:17] LABS: CREATININE 4.2 mg/dL (0.6-1.3)
[2020-09-28] MEDS: SODIUM BICARBONATE 650 MG TAB PO SCH ×2 (17:00→20:50)
--- NOTE | 2020-09-28 18:00 | NUR ---
BLOOD GLUCPOSE 68.ON INSULIN DRIP AT 0.05/KG/HR.
--- NOTE | 2020-09-28 19:30 | NUR ---
REPORT GIVE TO TOPHER RN CONDITION STABLE AT THE TIME.
--- NOTE | 2020-09-28 19:30 | NUR ---
RECEIVED PATIENT ON BED, SOMEWHAT SLEEPY, FOLLOW COMMANDS; ON 3 LITERS 02/ SO2 91@. CARDIACSCOPE SHOWS ON SINUS RHYTHM HR 91/MIN NO ARRHYTHMIAS SEEN. COMMENCING ON IVF D5 1/2 NORMAL SALINE WITH 100 MEQ NA HCO3 AT 75 ML/HR AND ON REGULAR INSULIN DRIP AT 0.05 UNITS/HR VIA CENTRAL LINE TO RIGHT SUBCLAVIAN; PATENT AND INTACT. ABDOMEN IS SOFT, OBESE NON TENDER.
[2020-09-28] MEDS: DEXT 5% /NACL 0.9% 1,000 ML IV SCH (20:00)
--- NOTE | 2020-09-28 20:15 | NUR ---
ULTRASOUND GALLBLADDER DONE BY TECH AT BEDSIDE.
[2020-09-28 21:31] LABS: ALBUMIN 1.7 g/dL (3.4-5.0); ANION GAP 16.7 (8-16); CARBON DIOXIDE 20.5 mmol/L (21-32); POTASSIUM 3.2 mmol/L (3.5-5.1); TOTAL BILIRUBIN 0.7 mg/dL (0.0-1.0)
--- NOTE | 2020-09-28 23:20 | NUR ---
COMPLAINED OF SEVERE ABDOMINAL PAIN, 10/10 PAIN SCALE; REFERRED TO DR. YANG AND GOT AN ORDER OF MORPHINE 4 MG IVP WHICH WAS GIVEN THEREAFTER. Addendum: 09/29/20 at 0744 by Belkis Barrow RN DR. YANG WAS INFORMED AND AWARE THAT PATIENT'S BLOOD SUGAR IS ALWAYS BEEN LESS THAN 100; STILL TO CONTINUE INSULIN DRIP BECAUSE ANION GAP STILL HIGH.
[2020-09-28] MEDS ORDERED: MORPHINE SULFATE 4 MG/ML SYR ONE (23:30)
[2020-09-28] MEDS: MORPHINE SULFATE 4 MG/ML SYR IVP PRN (23:40)
[2020-09-29] VITALS (15 sets, daily range): BP systolic 111–143; BP diastolic 52–84
--- NOTE | 2020-09-29 | NUR ---
SLEEPING QUIETLY; V/S STABLE..
[2020-09-29] MEDS: SODIUM BICARBONATE 8.4% 100 MEQ in DEXT 5% / NACL 0.45% 1,000 ML IV SCH (02:49)
[2020-09-29] MEDS: ACETAMINOPHEN 325 MG TAB PO PRN (02:50)
[2020-09-29] MEDS: BLOOD GLUCOSE MONITORING 1 DEV DEV FS SCH ×11 (03:00→23:56)
[2020-09-29] MEDS: INSULIN REGULAR, HUMAN 100 UNIT in NACL 0.9% 100 ML IV SCH ×4 (03:01→17:47)
[2020-09-29] MEDS: PIPERACILLIN/TAZOBACTAM 2.25 GM in DEXTROSE 5% 50 ML IV SCH ×3 (05:00→20:54)
--- NOTE | 2020-09-29 05:00 | NUR ---
MORNING BED BATH DONE WITH MINIMAL ASSISTANCE.
[2020-09-29 05:54] LABS: BASOPHILS # (AUTO) 0.1 K/uL (0.00-0.22); BASOPHILS % (AUTO) 0.6 % (0.0-2.0); EOSINOPHILS # (AUTO) 0.1 K/uL (0-0.4); EOSINOPHILS % (AUTO) 1.2 % (0.0-4.0); HEMATOCRIT 34.7 % (36-48); HEMOGLOBIN 11.6 g/dL (12.0-16.0); LYMPHOCYTES # (AUTO) 1.1 K/uL (2.5-16.5); LYMPHOCYTES % (AUTO) 10.1 % (20.5-51.1); MEAN CORPUSCULAR HEMOGLOBIN 28 pg (27-31); MEAN CORPUSCULAR HGB CONC 33 g/dL (33-37); MEAN CORPUSCULAR VOLUME 84.8 fL (80-94); MONOCYTES # (AUTO) 0.6 K/uL (0.8-1.0); MONOCYTES % (AUTO) 6.1 % (1.7-9.3); NEUTROPHILS # (AUTO) 8.7 K/uL (1.8-7.7); PLATELET COUNT (AUTO) 101 K/uL (140-450); RED BLOOD CELL COUNT(AUTO) 4.09 MIL/uL (4.20-5.40); RED CELL DISTRIBUTION WIDTH 17.4 % (11.6-13.7); WHITE BLOOD COUNT (AUTO) 10.5 K/uL (4.8-10.8)
[2020-09-29 06:22] LABS: ALBUMIN 1.7 g/dL (3.4-5.0); CARBON DIOXIDE 21.2 mmol/L (21-32); CREATININE 3.5 mg/dL (0.6-1.3); MAGNESIUM 1.8 mg/dL (1.8-2.4); PHOSPHORUS 3.4 mg/dL (2.5-4.9); POTASSIUM 3.2 mmol/L (3.5-5.1); TOTAL BILIRUBIN 0.9 mg/dL (0.0-1.0)
--- NOTE | 2020-09-29 07:20 | NUR ---
ENDORSED TO AM SHIFT BHARATI GERARDO FOR CONTINUITY OF CARE.
--- NOTE | 2020-09-29 07:22 | NUR ---
RECEIVED PATIENT FROM LEATHER DRESSER CHARGE NURSE TOPHER FOR CONTINUITY OF CARE. PATIENT IS ASLEEP ON BED AND AROUSABLE TO VOICE. PATIENT IS ABLE TO VERBALIZE HER FULL NAME, BIRTHDAY, BUT DOES NOT KNOW THE PLACE, DATE AND TIME. PATIENT IS ABLE TO FOLLOW SIMPLE COMMAND, SQUEEZE MY HANDS, AND MAKE NEEDS KNOWN. RESPIRATION EVEN AND UNLABORED ON RA, LUNGS SOUND CLEAR ON AUSCULTATION. PATIENT DENIED PAIN, SOB AND ANY DISCOMFORT AT THIS TIME. L SUBCLAVIAN CENTRAL TRIPLE LUMEN IN PLACE, DRESSING CLEAN AND DRY, RUNNING INSULIN DRIP AT 0.05 UNIT/KG/HR, D5NS0.45 SODIUM BICARBONATE AT 75 ML/HR, AND NS AT 5 ML/HR. SKIN WARM AND DRY. ABDOMEN SOFT AND ROUND, NON-DISTENDED. RAMÍREZ IN PLACE, DRAINING WITH GRAVITY, YELLOW URINE IN BAG NOTED. PATIENT IS BEDREST DUE TO GENERALIZED WEAKNESS AND ON CLEAR LIQUID NCS. DISCUSSED PLAN OF CARE WITH PATIENT, AND PATIENT VERBALIZED OK. SAFETY MEASURES IN PLACE. CHECKING CLERK IN PLACE. BED IN LOW POSITION, CALL LIGHT WITHIN REACH. INSTRUCTED PATIENT TO USE THE CALL LIGHT FOR ANY ASSISTANCE AND PATIENT AWARE.
--- NOTE | 2020-09-29 08:13 | NUR ---
RECEIVED A CALL FROM PATIENT' SON JAMEY, UPDATED WITH PATIENT'S CURRENT CONDITION AND JAMEY WAS AWARE.
--- NOTE | 2020-09-29 08:42 | NUR ---
WITH ASSIST, REPOSITIONED PATIENT, AND SCOOT PATIENT UP, CHANGED ALL DIRTY LINENS, PATIENT TOLERATED FAIR. PATIENT IS EATING BREAKFAST ON BED AT THIS TIME. NO SIGNS OF ACUTE DISTRESS NOTED. MACHINE SIGN WRITER IN PLACE. SAFETY MEASURES IN PLACE.
[2020-09-29] MEDS: DOCUSATE SODIUM 100 MG GELCAP PO SCH (08:58)
[2020-09-29] MEDS: SODIUM BICARBONATE 650 MG TAB PO SCH ×4 (08:58→21:33)
[2020-09-29] MEDS: PANTOPRAZOLE 40 MG INJ VIAL IVP SCH (08:58)
[2020-09-29] MEDS: POTASSIUM CHLORIDE 10 MEQ TABER PO PRN ×2 (09:02→14:23)
--- NOTE | 2020-09-29 09:10 | NUR ---
ADMINISTERED AM SCHEDULED MEDS PER MD ORDER, MEDS EDUCATION PROVIDED TO PATIENT, AND REINFORCEMENT NEEDED, 40 MEQ K-DUR ADMINISTERED FOR LOW POTASSIUM 3.2 FROM AM LAB, PATIENT TOLERATED PO MEDS WELL WITH WATER. PATIENT AWAKE AND RESTING ON BED AT THIS TIME. NO SIGNS OF ACUTE DISTRESS NOTED. MANAGER POOL IN PLACE. SAFETY MEASURES IN PLACE.
[2020-09-29] MEDS ORDERED: SODIUM BICARBONATE 8.4% 75 MEQ in DEXT 5% / NACL 0.45% 1,000 ML IV SCH (10:00)
[2020-09-29] MEDS: MORPHINE SULFATE 4 MG/ML SYR IVP PRN ×2 (10:21→21:44)
--- NOTE | 2020-09-29 10:27 | NUR ---
ATTENDED TO PATIENT, PATIENT COMPLAINING SHE HAS 7/10 PAIN ON HER ABDOMINAL, SHE MOURNING AND FACIAL GRIMACING, ASSESSED PATIENT, STOMACH IS NON-DISTENDED, SOFT, REPOSITIONED PATIENT, AND OFFLOADED PRESSURE WITH PILLOWS. PATIENT STATED IT'S STILL HURTING BADLY. MEDICATED WITH PRN MORPHINE, MED EDUCATION PROVIDED, PATIENT SAID OK. PATIENT IS RESTING ON BED AT THIS TIME. SAFETY MEASURES IN PLACE.
--- NOTE | 2020-09-29 10:33 | NUR ---
CHANGED IVF TO D5NS0.45 SODIUM BICARBONATE 8.4% AT 50 ML/HR PER DR MELENDEZ ORDER.
--- NOTE | 2020-09-29 11:38 | NUR ---
CHECKED BG AND RECEIVED 73, PATIENT IS RESTING ON BED, DENIED PAIN, SOB AND ANY DISTRESS. PRODUCT/INDUSTRY CONSULTANT IN PLACE. SAFETY MEASURES IN PLACE.
--- NOTE | 2020-09-29 11:54 | NUR ---
RECEIVED A CALL FROM PATIENT'S SON JAMEY AND JAMEY GAVE CONSENT TO SISTER DAIN ARNDT (PATIENT'S DAUGHTER) TO OBTAIN PATIENT'S MEDICAL INFORMATION. UPDATED DAIN WITH PATIENT'S CURRENT CONDITION AND DAIN WAS AWARE.
--- NOTE | 2020-09-29 12:11 | NUR ---
DR POST IS ASSESSING PATIENT AT BEDSIDE.
--- NOTE | 2020-09-29 12:57 | NUR ---
DR DANIEL IS ROUNDING ON PT AT BEDSIDE
--- NOTE | 2020-09-29 13:18 | NUR ---
MEDICATIONS ADMINISTERED PER MD ORDER. NEW BAG OF NS STARTED. MEDICATION EDUCATION PROVIDED. PT VERBALIZES UNDERSTANDING. BED IN LOW POSITION, HOB HIGH FOWLERS, PT EATING LUNCH. SAFETY MEASURES IN PLACE. FRIT BURNER IN PLACE.
--- NOTE | 2020-09-29 13:23 | NUR ---
DR MELENDEZ IS ASSESSING PATIENT AT BEDSIDE. VERIFIED WITH DR MELENDEZ WITH IVF, PER DR MELENDEZ, CONTINUE WITH SODIUM BICARBONATE FOR 50 ML/HR FOR 1 LITER. IF GLUCOSE IS OK, SWITCH TO NS 0.45, IF GLUCOSE IS LOW, USE D5NS 0.45. CONFIRMED WITH DR MELENDEZ AND WILL NOTIFY PHARMACY.
[2020-09-29 13:43] LABS: ANION GAP 15.7 (8-16); CARBON DIOXIDE 24.4 mmol/L (21-32); POTASSIUM 3.1 mmol/L (3.5-5.1)
[2020-09-29] MEDS: DEXT 5% / NACL 0.45% 1,000 ML IV SCH (14:20)
--- NOTE | 2020-09-29 14:23 | NUR ---
POTASSIUM LEVEL 3.1 FROM LAB DRAW, ADMINISTERED 40 MEQ K-DUR, MED EDUCATION PROVIDED, PATIENT TOLERATED WELL. PATIENT IS RESTING ON BED. NO SIGNS OF ACUTE DISTRESS NOTED. EXTRUDING DEPARTMENT SUPERVISOR IN PLACE. SAFETY MEASURES IN PLACE.
--- NOTE | 2020-09-29 15:11 | NUR ---
RECEIVED A CALL FROM DR RAWLS, AND PER DR RAWLS, DR AVALOS IS PROOFER FOR THIS WEEK. SUGGESTED TO CONTACT DR AVALOS FOR CONSULT.
--- NOTE | 2020-09-29 15:18 | NUR ---
PAGED DR AVALOS FOR CONSULTATION, AWAITING FOR MD TO CALL BACK.
[2020-09-29] MEDS: DEXTROSE 50% 50 ML SYR IVP PRN ×2 (15:25→20:43)
--- NOTE | 2020-09-29 15:25 | NUR ---
CHECKED BLOOD GLUCOSE AND RECEIVED 51, ADMINISTERED D50 PER PROTOCOL, MED EDUCATION PROVIDED, PATIENT SAID OK. AND WILL RECHECK BLOOD GLUCOSE IN 15 MINS. PATIENT IS AWAKE AND RESTING ON BED. DENIED PAIN, DIZZINESS, NAUSEA, AND VOMITING. NO SIGNS OF ACUTE DISTRESS NOTED. SAFETY MEASURES IN PLACE.
--- NOTE | 2020-09-29 15:40 | NUR ---
RECHECKED BLOOD GLUCOSE, 128. NO DEXTROSE COVERAGE NECESSARY.
--- NOTE | 2020-09-29 15:48 | NUR ---
09/29/20 RD FOLLOW UP COMPLETED PLEASE REFER TO NUTRITION ASSESSMENT UNDER CARE ACTIVITY FOR ESTIMATED NUTRITIONAL NEEDS. 1. CONTINUE CLEAR LIQUID DIET TOLERATED 2. [facility] WHEN MEDICALLY STABLE 3. RD PROVIDED DIABETES NUTRITION EDUCATION HANDOUT. 4. RD TO FOLLOW-UP 2-3 DAYS, HIGH RISK TYREL CARPENTER RD
--- NOTE | 2020-09-29 16:35 | NUR ---
PATIENT IS TALKING TO SISTER SHANAE ON THE PHONE. NO SIGNS OF DISTRESS NOTED. MACHINE PECAN GATHERER IN PLACE.
[2020-09-29 16:46] LABS: ANION GAP 13.4 (8-16); CREATININE 2.9 mg/dL (0.6-1.3); POTASSIUM 3.4 mmol/L (3.5-5.1)
--- NOTE | 2020-09-29 16:54 | NUR ---
DR YANG IS TALKING TO PATIENT AT BEDSIDE.
--- NOTE | 2020-09-29 17:15 | NUR ---
CALL RADIOLOGY DEPT AND SPOKE WITH SHANAE. PER SHANAE, SHE WILL TRY TO LOCATE THE NUCLEAR MED TECH AND WILL CALL ICU BACK ONCE SHE FINDS HIM.
--- NOTE | 2020-09-29 17:25 | NUR ---
ADMINISTERED SCHEDULED MED PER MD ORDER, MED EDUCATION PROVIDED, PATIENT TOLERATED MED WELL. PATIENT IS RESTING ON BED AT THIS TIME. NO SIGNS OF ACUTE DISTRESS NOTED. EYEWEAR CONSULTANT IN PLACE. SAFETY MEASURES IN PLACE.
--- NOTE | 2020-09-29 17:38 | NUR ---
RECEIVED A CALL FROM AYLA THAT SHE HAS SPEAK WITH BENJAMIN ON [employer] TECH THAT PATIENT HAS TO BE NPO AND OFF OPIOID FOR 4 HOURS, EXPLAINED THAT PATIENT GOT MORPHINE AROUND 1030 AND ATE LUNCH AROUND 1330, AYLA WAS AWARE AND SAID TO KEEP PATIENT ON NPO AND NO OPIOID, SHE WILL CONTACT BENJAMIN AND WILL CALL BACK.
--- NOTE | 2020-09-29 17:47 | NUR ---
RECEIVED A CALL FROM NC THAT HE WILL COME FOR THE HIDA SCAN AT 1900.
--- NOTE | 2020-09-29 18:42 | NUR ---
NM TECH IS BY BEDSIDE AND PATIENT IS GOING TO HIDA SCAN. PATIENT IS RESTING ON BED. NO SIGNS OF DISTRESS NOTED. SAFETY MEASURES IN PLACE.
--- NOTE | 2020-09-29 19:15 | NUR ---
ENDORSED PATIENT AT BEDSIDE TO ADVERTISING SALES CONSULTANT NURSE GRIFFIN FOR CONTINUITY OF CARE. PATIENT IS GOING ON HIDA SCAN. PATIENT IS IN STABLE CONDITION.
--- NOTE | 2020-09-29 19:30 | NUR ---
RECEIVED REPORT PATIENT IS HAVING HIDA SCAN AT THIS TIME.PATIENT IS LETHARGIC BUT AROUSES EASILY PATIENT APPEARING ANXIOUS NAD MOANS ,PATIENT FOLLOWS SIMPLE DIRECTION AND SHE MOVES ALL EXTREMITIES WELL.DEPUTY SHERIFF BUILDING GUARD SHOWS SINUS RYTHM.PATIENT RESPIRATION IS REGULAR SHE IS ON ROOM AIR.AND SHE IS SATURATING 96%.PATIENT WITH IV D-.45NS WITH BICARBONATE AT 50CC/HR INFUSING THRU HER RIGHT SUBCLAVIAN TRIPLE LUMEN CATH.PATIENT IS ALSO ON INSULIN DRIP AT 6 UNITS /HR.RAMÍREZ CATH IN PLACE URINE IS CLEAR PALE YELLOW..
--- NOTE | 2020-09-29 20:00 | NUR ---
ACCUCHECK IS 9NLY 54MG/DL, I AMP D50% IV GIVEN. RECHECK BLOOD SUGAR AFTER 20 MINUTES AND BLOOD SUGAR IS 140.INSULIN DRIP HAS BEEN OFF AFTER FINDING HER BLOOD SUGAR IS ONLY 54MG/DL. RECHECK BLOOD SUGAR AGAIN AFTER 1 HOUR AND ITS 150. RECHECK BLOOD SUGAR AGAIN IN 2 HOURS AND ITS 130.INSULIN DRIP IS STILL OFF.
[2020-09-29 21:22] LABS: ANION GAP 15.8 (8-16); CARBON DIOXIDE 23.4 mmol/L (21-32); CREATININE 2.7 mg/dL (0.6-1.3); POTASSIUM 3.2 mmol/L (3.5-5.1)
[2020-09-30] VITALS (12 sets, daily range): BP systolic 95–127; BP diastolic 24–83
--- NOTE | 2020-09-30 | NUR ---
DR OPHELIA HUTSON CALLED FOR UPDATE HE HAS BEEN UPDATED OF THE BLOOD SUGAR DROPPING IN THE 50 AND WAS GIVEN D50 1 AMP.AND INSULIN DRIP HAS BEEN OFF SINCE 2029.DR HUTSON ORDERED TO KEEP INSULIN DRIP OFF AND MAY RESUME INSULIN DRIP IF BLOOD SUGAR GOES OVER 250. BLOOD SUGAR HAS BEEN LESS 200 MOST OF THE TIME. MAINTENANCE IV IS 0.45NS AT 80CC/HR.
[2020-09-30 01:01] LABS: ANION GAP 14.7 (8-16); CARBON DIOXIDE 22.5 mmol/L (21-32); CREATININE 2.7 mg/dL (0.6-1.3); POTASSIUM 3.2 mmol/L (3.5-5.1)
[2020-09-30] MEDS: BLOOD GLUCOSE MONITORING 1 DEV DEV FS SCH ×8 (01:47→21:30)
[2020-09-30] MEDS ORDERED: ATROPINE 0.4 MG/ML VIAL IVP PRN (01:55)
[2020-09-30] MEDS ORDERED: DOPamine 400 MG/D5W PREMIX 250 ML IV PRN (01:55)
--- NOTE | 2020-09-30 04:00 | NUR ---
PATIENT INCONTINENT OF BLACK PASTY STOOL.SHE MOANS AND GROANS COMPLAINING OF GENERAL BODY ACHES.
--- NOTE | 2020-09-30 04:26 | NUR ---
late entry s/w primary nurse, end times as follows; Norepinephrine End time 2310 Potassium Chloride/ Sodium Chloride 2355 Rocephin End time: 1709 NS 2L 1840
[2020-09-30] MEDS: PIPERACILLIN/TAZOBACTAM 2.25 GM in DEXTROSE 5% 50 ML IV SCH ×3 (04:37→21:26)
--- NOTE | 2020-09-30 05:00 | NUR ---
PATIENT HAD ANOTHER BLACK PASTY STOOL INSTRUCTED PATIENT TO CALL IF SHE NEEDED TO GO. PATIENT REMAIN AWAKE AND ALERT AND SHE VERBALIZED UNDERSTSNDING OF INSTRUCTION
[2020-09-30] MEDS: MORPHINE SULFATE 4 MG/ML SYR IVP PRN ×2 (06:29→09:57)
[2020-09-30 06:37] LABS: ALBUMIN 1.6 g/dL (3.4-5.0); ANION GAP 16.2 (8-16); BASOPHILS # (AUTO) 0.1 K/uL (0.00-0.22); BASOPHILS % (AUTO) 0.6 % (0.0-2.0); CARBON DIOXIDE 23.1 mmol/L (21-32); CREATININE 2.6 mg/dL (0.6-1.3); EOSINOPHILS # (AUTO) 0.1 K/uL (0-0.4); HEMATOCRIT 33.3 % (36-48); HEMOGLOBIN 11.1 g/dL (12.0-16.0); LYMPHOCYTES # (AUTO) 1.1 K/uL (2.5-16.5); LYMPHOCYTES % (AUTO) 11.1 % (20.5-51.1); MAGNESIUM 1.6 mg/dL (1.8-2.4); MEAN CORPUSCULAR HEMOGLOBIN 28 pg (27-31); MEAN CORPUSCULAR HGB CONC 33 g/dL (33-37); MEAN CORPUSCULAR VOLUME 85.3 fL (80-94); MONOCYTES # (AUTO) 0.9 K/uL (0.8-1.0); MONOCYTES % (AUTO) 8.5 % (1.7-9.3); NEUTROPHILS # (AUTO) 8.2 K/uL (1.8-7.7); NEUTROPHILS % (AUTO) 78.8 % (42.2-75.2); PHOSPHORUS 2.7 mg/dL (2.5-4.9); PLATELET COUNT (AUTO) 113 K/uL (140-450); POTASSIUM 3.3 mmol/L (3.5-5.1); RED BLOOD CELL COUNT(AUTO) 3.91 MIL/uL (4.20-5.40); TOTAL BILIRUBIN 0.8 mg/dL (0.0-1.0); WHITE BLOOD COUNT (AUTO) 10.3 K/uL (4.8-10.8)
[2020-09-30] MEDS: NACL 0.45% 1,000 ML IV SCH ×2 (07:24→21:26)
[2020-09-30] MEDS: INSULIN LISPRO SLIDING SCALE 100 UNITS/ML VIAL SUBQ PRN ×3 (08:50→17:19)
--- NOTE | 2020-09-30 08:50 | NUR ---
LARGE BROWN BM, PT SOILED HERSELF, PERICARE DONE, BED BATH GIVEN BY Lissa WALTON APPLIED TO INC DERMATITIS PERIAREA.
[2020-09-30] MEDS: DOCUSATE SODIUM 100 MG GELCAP PO SCH (09:00)
--- NOTE | 2020-09-30 09:04 | NUR ---
DR QUIÑONES AT BEDSIDE, PT CONSENTED FOR ERCP TOMORROW
[2020-09-30] MEDS ORDERED: Z-GUARD PASTE TP ONE ×2 (09:15→09:30)
[2020-09-30] MEDS: PANTOPRAZOLE 40 MG INJ VIAL IVP SCH (09:20)
--- NOTE | 2020-09-30 09:20 | NUR ---
DR POST CALLED, ORDERS FOR INSULIN SLIDING SCALE, DOWN GRADE TO TELE, CANCEL BMP Q4H
[2020-09-30 09:25] LABS: ALBUMIN 1.6 g/dL (3.4-5.0); BILIRUBIN,DIRECT 0.4 mg/dL (0.0-0.3); TOTAL BILIRUBIN 0.9 mg/dL (0.0-1.0)
[2020-09-30] MEDS: SODIUM BICARBONATE 650 MG TAB PO SCH ×4 (09:30→21:24)
[2020-09-30 09:41] LABS: AMYLASE 31 U/L (25-115); LIPASE 118 U/L (73-393)
[2020-09-30] MEDS: ONDANSETRON 4 MG/2 ML VIAL IVP PRN (09:52)
[2020-09-30] MEDS: POTASSIUM CHLORIDE 10 MEQ TABER PO PRN (09:58)
--- NOTE | 2020-09-30 09:58 | NUR ---
MAG 1.6, K 3.2, MEDICATED PER ORDER, MORPHINE GIVEN FOR PAIN 06/26.
[2020-09-30] MEDS: DEXT 5% / NACL 0.45% 1,000 ML IV SCH (10:20)
[2020-09-30] MEDS: Z-GUARD PASTE TP SCH (12:31)
[2020-09-30] MEDS ORDERED: SPIRONOLACTONE 50 MG TAB PO SCH (13:30)
--- NOTE | 2020-09-30 15:32 | NUR ---
REPORT GIVEN TO JESE CALABRESE
--- NOTE | 2020-09-30 15:33 | NUR ---
RECEIVED REPORT FROM ICU NURSE LEXI-RN. PT ARRIVED VIA WHEELCHAIR. AOX4, ON ROOM AIR WITH RIGHT IJ X3 LUMEN RUNNING 1/2 NS @ 50ML/HR WITH RAMÍREZ CATHETER IN PLACE. SKIN INTACT. INCONTINENT. GENERALIZED WEAKNESS. CONSENT SIGNED FOR 10/[address] AVALOS. NPO AFTER MIDNIGHT. ORIENTED PT TO ROOM. DISCUSSED PLAN OF CARE AND PT VERBALIZED UNDERSTANDING. NO S/S OF RESPIRATORY DISTRESS OR DISCOMFORT NOTED AT THIS TIME. WILL CONTINUE TO MONITOR.
--- NOTE | 2020-09-30 19:05 | NUR ---
RECEIVED BEDSIDE REPORT FROM DAY SHIFT NURSE FOR CONTINUITY OF CARE. PT IS AWAKE AND ALERT, A&OX4. SPEAKING APPROPRIATELY AND LAYING IN SEMI FOWLERS POSITION. ON RA WITH BREATHING UNLABORED. RAMÍREZ CATHETER IN PLACE. AMBULATE WITH ASSISTANCE, FALL RISK PRECAUTION. SKIN IS WARM, DRY, AND INTACT. IV IS IN THE RIGHT IJ TRIPLE LUMEN RUNNING MAGNESIUM FROM THE ICU. WILL CONTINUE TO MONITOR IV. PLAN OF CARE DISCUSSED. PT IS NPO AT MIDNIGHT TO PREPARE FOR ERCP TOMORROW AT 0800 AM. BED IS IN THE LOWEST POSITION AND CALL LIGHT IS WITHIN REACH. PT IS STABLE.
[2020-09-30 19:17] LABS: CARBON DIOXIDE 26.8 mmol/L (21-32); CREATININE 2.3 mg/dL (0.6-1.3); POTASSIUM 3.8 mmol/L (3.5-5.1)
--- NOTE | 2020-09-30 21:30 | NUR ---
ADMINISTERED MEDICATIONS TO PT. PROVIDED MEDICATION EDUCATION AND PT VERBALIZED UNDERSTANDING. MAGNESIUM HAD FINISHED AND NEW BAG OF HALF NS WAS SUPPLIED AT 50 ML PER HOUR PER ORDER. BLOOD SUGAR WAS CHECKED AND IT WAS 143, THEREFORE NO INSULIN COVERAGE WAS NEEDED PER SLIDING SCALE. PT IS STABLE, BED IS IN THE LOWEST POSITION. NO COMPLAINTS OF PAIN.
--- NOTE | 2020-09-30 23:30 | NUR ---
ROUNDED ON PT. SHE IS ASLEEP IN HIGH FOWLERS POSITION. RAMÍREZ IN PLACE. CELL PHONE AT BEDSIDE. CALL LIGHT WITHIN REACH. NO DISTRESS NOTED.
[2020-10-01] MEDS: Z-GUARD PASTE TP SCH ×2 (01:30→12:33)
--- NOTE | 2020-10-01 01:30 | NUR ---
PT HAD A BOWEL MOVEMENT AND LINENS WERE CHANGED. HYDRAGAURD WAS PLACED ON THE PERINEAL AREA. ABDOMINAL FOLDS WERE CLEANSED WITH NS AND PATTED DRY WITH GAUZE. IV FLUIDS ARE INFUSING AND PATENT. PT IS STABLE AT THIS TIME.
--- NOTE | 2020-10-01 03:30 | NUR ---
ROUNDED ON PT. SHE IS ASLEEP. NO DISTRESS NOTED. CHEST RISE AND FALL IS SYMMETRICAL. RIGHT UPPER IJ IS PATENT AND INTACT. BED IS IN THE LOWEST POSITION AND CALL LIGHT IS WITHIN REACH.
[2020-10-01] MEDS: PIPERACILLIN/TAZOBACTAM 2.25 GM in DEXTROSE 5% 50 ML IV SCH (05:28)
--- NOTE | 2020-10-01 05:30 | NUR ---
PT'S GOWN WAS CHANGED. RAMÍREZ BAG WAS EMPTIED. PT IS AWAKE AND ALERT. BREATHING IS UNLABORED. PT IS STABLE. CELL PHONE IS AT BEDSIDE.
[2020-10-01] MEDS: DEXT 5% / NACL 0.45% 1,000 ML IV SCH (05:38)
[2020-10-01] MEDS: BLOOD GLUCOSE MONITORING 1 DEV DEV FS SCH ×4 (06:40→20:59)
--- NOTE | 2020-10-01 06:40 | NUR ---
PT'S BS READING WAS 182 AND INSULIN WAS NOT GIVEN BECAUSE PT IS NPO. SHE HAS BEEN NPO SINCE MIDNIGHT AND IS SCHEDULED FOR ERCP PROCEDURE AT 0800. INQUIRED WITH CHARGE NURSE, HÉCTOR CALABRESE, AND HE AGREED TO NOT GIVE INSULIN CONSIDERING SHE IS NPO GOING FOR PROCEDURE.
--- NOTE | 2020-10-01 07:05 | NUR ---
ENDORSED PT TO DAY SHIFT NURSE FOR CONTINUITY OF CARE. PT IS STABLE AT THIS TIME. NO DISTRESS NOTED. PLAN OF CARE DISCUSSED.
[2020-10-01 07:27] LABS: BASOPHILS % (AUTO) 0.2 % (0.0-2.0); EOSINOPHILS # (AUTO) 0.1 K/uL (0-0.4); EOSINOPHILS % (AUTO) 0.8 % (0.0-4.0); HEMATOCRIT 34.8 % (36-48); HEMOGLOBIN 11.5 g/dL (12.0-16.0); LYMPHOCYTES # (AUTO) 1.2 K/uL (2.5-16.5); LYMPHOCYTES % (AUTO) 8.8 % (20.5-51.1); MEAN CORPUSCULAR HEMOGLOBIN 28 pg (27-31); MEAN CORPUSCULAR HGB CONC 33 g/dL (33-37); MEAN CORPUSCULAR VOLUME 85.5 fL (80-94); MONOCYTES % (AUTO) 7.6 % (1.7-9.3); NEUTROPHILS # (AUTO) 10.9 K/uL (1.8-7.7); NEUTROPHILS % (AUTO) 82.6 % (42.2-75.2); PLATELET COUNT (AUTO) 155 K/uL (140-450); RED BLOOD CELL COUNT(AUTO) 4.07 MIL/uL (4.20-5.40); RED CELL DISTRIBUTION WIDTH 16.6 % (11.6-13.7); WHITE BLOOD COUNT (AUTO) 13.2 K/uL (4.8-10.8)
[2020-10-01 07:32] LABS: ALBUMIN 1.8 g/dL (3.4-5.0); ANION GAP 17.9 (8-16); CARBON DIOXIDE 23.1 mmol/L (21-32); MAGNESIUM 1.8 mg/dL (1.8-2.4); PHOSPHORUS 3.4 mg/dL (2.5-4.9); TOTAL BILIRUBIN 0.6 mg/dL (0.0-1.0)
[2020-10-01] MEDS ORDERED: PROPOFOL 200 MG/20 ML VIAL IV ONE (08:22)
[2020-10-01 08:23] VITALS: BP 147/72
--- NOTE | 2020-10-01 08:45 | NUR ---
PT SLEEPING ON BED. A/O X4, STATES NO PAIN. PT STABLE AND LEAVING UNIT FOR PROCEDURE.
[2020-10-01] MEDS ORDERED: SIMETHICONE 40 MG/0.6 ML ONE (08:46)
[2020-10-01] MEDS ORDERED: GLUCAGON 1 MG VIAL ONE (09:02)
[2020-10-01] MEDS ORDERED: HYDROmorphone 1 MG/ML AMP IVP PRN (10:10)
[2020-10-01] MEDS ORDERED: ONDANSETRON 4 MG/2 ML VIAL IVP PRN (10:10)
[2020-10-01] MEDS: HYDROmorphone PFS 2 MG/ML SYR ONE ×2 (10:20→10:35)
[2020-10-01] MEDS: INSULIN LISPRO SLIDING SCALE 100 UNITS/ML VIAL SUBQ PRN ×2 (10:35→12:31)
[2020-10-01] MEDS ORDERED: BLOOD GLUCOSE MONITORING 1 DEV DEV FS SCH (10:45)
--- NOTE | 2020-10-01 11:05 | NUR ---
PT RETURNED TO UNIT; STABLE AND SLEEPING SEMIFOWLERS ON BED. PT GIVEN DILAUDID 1 GM AT OR.
[2020-10-01] MEDS: DOCUSATE SODIUM 100 MG GELCAP PO SCH (11:24)
[2020-10-01] MEDS: PANTOPRAZOLE 40 MG INJ VIAL IVP SCH (11:24)
[2020-10-01] MEDS: SODIUM BICARBONATE 650 MG TAB PO SCH ×4 (11:25→20:53)
--- NOTE | 2020-10-01 12:30 | NUR ---
PT SLEEPING TO LEFT, COMFORTABLY AND STATES NO PAIN. PT STABLE, AND BREATHING RATE 18.
--- NOTE | 2020-10-01 14:45 | NUR ---
PT IN LEFT RECUMBENT, SLEEPING. PT STATED NO PAIN OR DISCOMFORT.
[2020-10-01] MEDS: MORPHINE SULFATE 4 MG/ML SYR IVP PRN ×2 (16:37→20:51)
--- NOTE | 2020-10-01 16:38 | NUR ---
PT C/O PAIN THAT IS 10/10, LOWER BACK PAIN THAT IS ACHING AND IS CONSTANT. MORPHINE ADMIN. WILL REASSESS AT 1700.
--- NOTE | 2020-10-01 17:07 | NUR ---
PT STATED NO PAIN AND MORPHINE WAS EFFECTIVE.
--- NOTE | 2020-10-01 18:58 | NUR ---
PT SLEEPING IN BED IN SEMIFOWLERS. PT STABLE AND WILL ENDORSE CARE TO BARREL CHARRER HELPER RN.
--- NOTE | 2020-10-01 19:25 | NUR ---
RECEIVED PT SLEEPING, EASILY AROUSABLE BUT DROWSY, ABLE TO MAKE NEEDS KNOWN, DENIES ANY PAIN, NO SOB NOTED, IVF RESUMED WITH 1/2 NS AT 50 ML PER HOUR VIA RT SC CVP LINE, DRESSING DRY AND INTACT, RAMÍREZ CATHETER DRAINING WELL WITH CLEAR YELLOW OUTPUT, PLAN OF CARE DISCUSSED, SAFETY MEASURES IN PLACE, CALL LIGHT WITHIN REACH.
[2020-10-01 20:00] VITALS: BP 142/76
--- NOTE | 2020-10-01 21:00 | NUR ---
BLOOD SUGAR CHECKED WITH 113 RESULT, DUE MEDS ADMINISTERED, ABLE TO REPOSITION SELF WITH ASSIST, ALL NEEDS ATTENDED.
[2020-10-02] MEDS: NACL 0.45% 1,000 ML IV SCH ×3 (00:01→19:00)
[2020-10-02] MEDS: MORPHINE SULFATE 4 MG/ML SYR IVP PRN ×6 (00:33→22:02)
--- NOTE | 2020-10-02 00:35 | NUR ---
PT AWAKE COMPLAINING OF BACK PAIN, MEDICATED PRN WITH MORPHINE IVP, TOLERATING ORAL FLUIDS AT THIS TIME, IVF INFUSING WELL, CONTINUE TO MONITOR CLOSELY.
[2020-10-02] MEDS: Z-GUARD PASTE TP SCH ×2 (00:36→12:52)
[2020-10-02] MEDS: DEXT 5% / NACL 0.45% 1,000 ML IV SCH (02:20)
[2020-10-02 04:00] VITALS: BP 134/73
[2020-10-02] MEDS ORDERED: PIPERACILLIN/TAZOBACTAM 2.25 GM VIAL IV ONE (04:27)
[2020-10-02] MEDS: PIPERACILLIN/TAZOBACTAM 2.25 GM in DEXTROSE 5% 50 ML IV SCH ×2 (04:35→12:50)
--- NOTE | 2020-10-02 05:55 | NUR ---
PT ABLE TO DO AM CARE INDEPENDENTLY, BLOOD SUGAR CHECKED WITH 160 RESULT, WILL HOLD COVERAGE FOR NOW DUE TO NPO AFTER MIDNIGHT STATUS, IVF INFUSING WELL, MONITORED CLOSELY.
[2020-10-02] MEDS: BLOOD GLUCOSE MONITORING 1 DEV DEV FS SCH ×4 (06:49→20:30)
[2020-10-02 07:16] LABS: BASOPHILS % (AUTO) 0.3 % (0.0-2.0); EOSINOPHILS # (AUTO) 0.1 K/uL (0-0.4); EOSINOPHILS % (AUTO) 0.9 % (0.0-4.0); HEMATOCRIT 34.4 % (36-48); HEMOGLOBIN 11.1 g/dL (12.0-16.0); LYMPHOCYTES # (AUTO) 1.3 K/uL (2.5-16.5); MEAN CORPUSCULAR HEMOGLOBIN 28 pg (27-31); MEAN CORPUSCULAR HGB CONC 32 g/dL (33-37); MEAN CORPUSCULAR VOLUME 86.3 fL (80-94); MONOCYTES # (AUTO) 1.1 K/uL (0.8-1.0); MONOCYTES % (AUTO) 7.7 % (1.7-9.3); NEUTROPHILS % (AUTO) 82.1 % (42.2-75.2); PLATELET COUNT (AUTO) 187 K/uL (140-450); RED BLOOD CELL COUNT(AUTO) 3.98 MIL/uL (4.20-5.40); RED CELL DISTRIBUTION WIDTH 16.1 % (11.6-13.7); WHITE BLOOD COUNT (AUTO) 14.7 K/uL (4.8-10.8)
[2020-10-02 07:22] LABS: CARBON DIOXIDE 22.8 mmol/L (21-32); CREATININE 1.6 mg/dL (0.6-1.3); POTASSIUM 3.8 mmol/L (3.5-5.1)
--- NOTE | 2020-10-02 07:37 | NUR ---
PT SLEEPING, NO DISTRESS NOTED, REPORT GIVEN TO BHARATI SAWANT FOR CONTINUITY OF CARE.
--- NOTE | 2020-10-02 07:40 | NUR ---
RECEIVED REPORT FROM EXPOSURE MACHINE OPERATOR NURSE HÉCTOR-BHARATI. PT RESTING IN BED, AOX2-3 CONFUSED, ON ROOM AIR WITH RIGHT SUBCLAVIAN TRIPLE LUMEN RUNNING 1/2 NS @ 50ML/HR. INCONTINENT WITH RAMÍREZ CATHETER IN PLACE SINCE 09/26 UPON ADMISSION. DISCUSSED PLAN OF CARE AND PT VERBALIZED UNDERSTANDING. FALL PRECAUTIONS IN PALACE. NO S/S OF RESPIRATORY DISTRESS OR DISCOMFORT NOTED AT THIS TIME. WILL CONTINUE TO MONITOR.
[2020-10-02] MEDS: SODIUM BICARBONATE 650 MG TAB PO SCH ×4 (09:07→20:30)
[2020-10-02] MEDS: DOCUSATE SODIUM 100 MG GELCAP PO SCH (09:07)
[2020-10-02] MEDS: PANTOPRAZOLE 40 MG INJ VIAL IVP SCH (09:07)
--- NOTE | 2020-10-02 09:07 | NUR ---
SCHEDULED MEDICATIONS GIVEN AND TOLERATED WELL. NO S/S OF RESPIRATORY DISTRESS OR DISCOMFORT NOTED AT THIS TIME. WILL CONTINUE TO MONITOR.
--- NOTE | 2020-10-02 11:30 | NUR ---
BLOOD GLUCOSE 146- NO INSULIN COVERAGE. PT TOLERATED WELL.
--- NOTE | 2020-10-02 12:51 | NUR ---
SCHEDULED MEDICATIONS GIVEN AND TOLERATED WELL. PT C/O PAIN 06/26 AND MEDICATED WITH MORPHINE. PT TOLERATED WELL. NO S/S OF RESPIRATORY DISTRESS OR DISCOMFORT NOTED AT THIS TIME. WILL CONTINUE TO MONITOR.
--- NOTE | 2020-10-02 15:00 | NUR ---
PT RESTING IN BED. NO S/S OF RESPIRATORY DISTRESS OR DISCOMFORT NOTED AT THIS TIME. WILL CONTINUE TO MONITOR.
--- NOTE | 2020-10-02 16:05 | NUR ---
10/02/20 RD FOLLOW UP COMPLETED PLEASE REFER TO NUTRITION ASSESSMENT UNDER CARE ACTIVITY FOR ESTIMATED NUTRITIONAL NEEDS. 1. CONSIDER CONTINUING CLEAR LIQUID DIET TOLERATED 2. [facility] WHEN MEDICALLY STABLE 3. RD PROVIDED DIABETES NUTRITION EDUCATION HANDOUT. 4. RD TO FOLLOW-UP 2-3 DAYS, HIGH RISK TYREL CARPENTER RD
--- NOTE | 2020-10-02 16:30 | NUR ---
BLOOD GLUCOSE 148- NO NEED FOR INSULIN COVERAGE. PT TOLERATED WELL.
--- NOTE | 2020-10-02 17:36 | NUR ---
ADMINISTERED SODIUM BICARBONATE AND MORPHINE ORDERED PER MD. CATHETER FLUSHED BEFORE AND AFTER IV MEDICATION ADMINISTRATION. PATENT. PT TOLERATED MEDICATION. STABLE. CALL LIGHT WITHIN REACH. BED AT LOWEST POSITION.
[2020-10-02] MEDS: ONDANSETRON 4 MG/2 ML VIAL IVP PRN (19:05)
--- NOTE | 2020-10-02 19:05 | NUR ---
SCHEDULED MEDICATION ROCEPHIN AND TOLERATED WELL. PT C/O NAUSEA AND ZOFRAN WAS GIVEN. PT TOLERATED WELL. WILL CONTINUE TO MONITOR.
--- NOTE | 2020-10-02 19:30 | NUR ---
ENDORSED PT TO LARGE SHEETFED PRESS OPERATOR NURSE SHANTANU-BHARATI FOR CONTINUITY OF CARE. PT STABLE AT THIS TIME.
--- NOTE | 2020-10-02 19:31 | NUR ---
RECEIVED REPORT FROM DAY SHIFT NURSE. PT IN BED RESTING WITH HOB SLIGHTLY ELEVATED. PT AAOX3-4, AMBULATORY, AND ABLE TO MAKE NEEDS KNOWN. RESPIRATIONS EVEN AND UNLABORED TO ROOM AIR. LUNG SOUNDS CLEAR. ABDOMEN IS SOFT AND NON-TENDER. SKIN IS WARM AND DRY. REDNESS NOTED ON PERINEAL AREA, OTHERWISE INTACT. PT WITH SUBCLAVIAN TRIPLE LUMEN IV ACCESS IN PLACE, PATENT AND INTACT, IVF INFUSING WELL. PT VERBALIZING RELIEF FROM NAUSEA EARLIER. NO REQUESTS MADE. PT KEPT COMFORTABLE. SAFETY MEASURES IN PLACE. CALL LIGHT WITHIN REACH. WILL CONTINUE TO MONITOR. Addendum: 10/03/20 at 0010 by Timo Richards RN RAMÍREZ CATHETER IN PLACE, DRAINING WELL TO YELLOW URINE.
[2020-10-02 20:00] VITALS: BP 119/55
[2020-10-02] MEDS: INSULIN LISPRO SLIDING SCALE 100 UNITS/ML VIAL SUBQ PRN (20:36)
--- NOTE | 2020-10-02 20:37 | NUR ---
VS STABLE. SCHEDULED MEDS GIVEN ORDERED. BLOOD SUGAR 332, INSULIN COVERAGE GIVEN ORDERED. PT KEPT COMFORTABLE. SAFETY MEASURES IN PLACE. CALL LIGHT WITHIN REACH. WILL CONTINUE TO MONITOR.
--- NOTE | 2020-10-02 22:02 | NUR ---
PT COMPLAINING OF PAIN 05/26. PRN PAIN MEDICATION GIVEN ORDERED.
--- NOTE | 2020-10-03 00:18 | NUR ---
PT IN BED RESTING. SKIN CARE DONE WITH PATIENT. ZGUARD APPLIED ORDERED. PT ENCOURAGED TO MOVE AND CHANGE POSITIONS. PT KEPT COMFORTABLE. NO REQUESTS MADE. SAFETY MEASURES IN PLACE. CALL LIGHT WITHIN REACH, WILL CONTINUE TO MONITOR.
--- NOTE | 2020-10-03 02:15 | NUR ---
PT ASLEEP. VISIBLE CHEST RISE AND FALL NOTED. PT NOT IN DISTRESS. SAFETY MEASURES IN PLACE. CALL LIGHT WITHIN REACH. WILL CONTINUE TO MONITOR.
[2020-10-03] MEDS: Z-GUARD PASTE TP SCH ×2 (03:20→13:41)
[2020-10-03 04:00] VITALS: BP 119/56
[2020-10-03] MEDS: MORPHINE SULFATE 4 MG/ML SYR IVP PRN ×3 (04:34→13:41)
--- NOTE | 2020-10-03 04:34 | NUR ---
VS STABLE. PT COMPLAINING OF PAIN 10/10. PRN PAIN MEDICATION GIVEN ORDERED. WILL CONTINUE TO MONITOR.
--- NOTE | 2020-10-03 05:30 | NUR ---
PERINEAL CARE, SKIN CARE, CATHETER CARE DONE WITH RETAIL SALES REPRESENTATIVE. PT TOLERATED WELL. WILL CONTINUE TO MONITOR.
[2020-10-03] MEDS: BLOOD GLUCOSE MONITORING 1 DEV DEV FS SCH ×3 (06:30→16:25)
--- NOTE | 2020-10-03 07:22 | NUR ---
ENDORSED TO DAY SHIFT NURSE FOR CONTINUITY OF CARE
--- NOTE | 2020-10-03 07:23 | NUR ---
RECEIVED REPORT FROM CIRCULATION WORKER RN FOR CONTINUITY OF CARE. PATIENT RESTING IN BED. RESPIRATORY EVEN AND UNLABORED. IV SITE RIGHT SUBCLAVIAN TRIPLE LUMEN. INFUSING 1/2 NS @ 50ML/HR. SKIN WARM AND DRY. ABD SKIN FOLD REDNESS DUE TO OBESITY. REDNESS ON PERINEAL. RAMÍREZ CATH IN PLACE. PATIENT COMPLAINT OF WHOLE BODY GENERAL PAIN. LAST DOSE PAIN MED WAS GIVEN BY CIRCULATION WORKER RN AT 0434. INFORMED PATIENT THAT WILL GIVEN PAIN MED WHEN IT'S DUE FOR NEXT DOSE. SAFETY MEASURES IN PLACE, WILL CONTINUE TO MONITOR.
[2020-10-03] MEDS: SODIUM BICARBONATE 650 MG TAB PO SCH ×3 (09:31→17:14)
[2020-10-03] MEDS: DOCUSATE SODIUM 100 MG GELCAP PO SCH (09:31)
--- NOTE | 2020-10-03 09:32 | NUR ---
SCHEDULED MEDICATION GIVEN, MORPHINE GIVEN FOR WHOLE BODY PAIN 10/10, PER PATIENT'S REQUESTS. EDUCATION PROVIDED REGARDING MEDICATIONS, DIAGNOSIS AND PAIN MANAGEMENT. SAFETY MEASURES IN PLACE, CALL LIGHT WITHIN REACH. WILL CONTINUE TO MONITOR.
[2020-10-03] MEDS: NACL 0.45% 1,000 ML IV SCH (10:53)
[2020-10-03] MEDS: INSULIN LISPRO SLIDING SCALE 100 UNITS/ML VIAL SUBQ PRN (11:38)
--- NOTE | 2020-10-03 11:38 | NUR ---
2 UNITS OF HUMALOG GIVEN FOR BLOOD GLUCOSE LEVEL 166. EDUCATION PROVIDED, PATIENT TOLERATED WELL. NO ACUTE DISTRESS NOTED AT THIS TIME. SAFETY MEASURES IN PLACE, WILL CONTINUE TO MONITOR.
[2020-10-03 14:04] LABS: ANION GAP 12.8 (8-16); CARBON DIOXIDE 24.9 mmol/L (21-32); CREATININE 1.3 mg/dL (0.6-1.3); POTASSIUM 3.7 mmol/L (3.5-5.1)
[2020-10-03] MEDS ORDERED: [UNRECOGNIZED DRUG - CODE] PO (16:24)
[2020-10-03] MEDS ORDERED: GLIP-297 PO (16:24)
[2020-10-03] MEDS ORDERED: METF500T PO (16:24)
[2020-10-03] MEDS ORDERED: CIPR500T4 PO (16:24)
--- NOTE | 2020-10-03 16:26 | NUR ---
BLOOD GLUCOSE LEVEL 129. NO INSULIN COVERAGE NEEDED. PATIENT TALKING WITH FRIEND OVER THE PHONE. NO ACUTE DISTRESS NOTED AT THIS TIME. SAFETY MEASURES IN PLACE, WILL CONTINUE TO MONITOR.
[2020-10-03] MEDS ORDERED: ACETAMINOPHEN 325 MG TAB PO PRN (16:30)
[2020-10-03] MEDS ORDERED: HYDROcodone/APAP 5/325 MG 1 TAB TAB PO PRN (16:30)
[2020-10-03] MEDS ORDERED: SODIUM PHOSPHATE 118 ML ENEM RC PRN (16:35)
[2020-10-03] MEDS ORDERED: bisacodyL 5 MG TABEC PO PRN (16:35)
[2020-10-03] MEDS ORDERED: POLYETHYLENE GLYCOL 17 GM/PKT PO SCH (16:35)
--- NOTE | 2020-10-03 17:36 | NUR ---
SCHEDULED IV ROCEPHIN GIVEN, PATIENT TOLERATED WELL. RESTING IN BED WITH NO ACUTE DISTRESS. SAFETY MEASURES IN PLACE, WILL CONTINUE TO MONITOR.
[2020-10-03] MEDS ORDERED: FLU VACCINE QS2020-21 0.5 ML SYR IMVAC PRN (18:50)
--- NOTE | 2020-10-03 19:42 | NUR ---
RECEIVED PT IN STABLE CONDITION FROM AM NURSE. PT IS M/S AND AAO X4. FOR DISCHARGE HOME TONIGHT. STILL WITH RAMÍREZ CATHETER TO BE DC'D. HAS RT CHEST CENTRAL LINE. PAGED DR. DIAZ AND CALLED BACK OK TO DC THE CENTRAL LINE BEFORE DISCHARGE.WILL PREPARE PT FOR DISCHARGE. AM NURSE JUST FINISHED DISCHARGE PAPERS.
--- NOTE | 2020-10-03 19:45 | NUR ---
ENDORSED PATIENT TO SUPERVISOR WATERWORKS RN FOR CONTINUITY OF CARE. PATIENT IN STABLE CONDITION.
--- NOTE | 2020-10-03 19:50 | NUR ---
RAMÍREZ CATHETER DC'D. TOLERATED WELL.
--- NOTE | 2020-10-03 20:08 | NUR ---
FLU VACCINE GIVEN IM ON THE RT UPPER ARM ORDERED . DOCUMENTATION ON EMAR.
[2020-10-03] MEDS ORDERED: NACL 0.9% 1,000 ML IV SCH (21:00)
--- NOTE | 2020-10-03 21:00 | NUR ---
CENTRAL LINE ON THE RIGHT CHEST REMOVED BY MAYAMARBLE RUBBER . NO BLEEDING NOTED. DRESSING IN PLACED.
--- NOTE | 2020-10-03 21:15 | NUR ---
PT VOIDED. CLEANED BY STRUCTURAL ENGINEERING DRAFTING OFFICER. ALL DISCHARGE INSTRUCTION GIVEN TO PT. VERBALIZED UNDERSTANDING. F/U APPOINTMENT TO PCP ON OCT 05 @2:30 PM. SCHEDULE PROVIDED. DISCHARGED HOME IN STABLE CONDITION BY WHEELCHAIR WITH SON JAMEY ,TO FRONT/PARKING LOT BY OWN PRIVATE CAR. ALL DC PAPERS AND PERSONAL BELONGINGS WITH EYEGLASSES WITH PT.
== END 2020-10-03 21:15 | disposition home or self-care (01) | DRG 720 ==
LOC: MED 16:08 → MLD 18:23 → MIC 20:44 → MTU 09-30 15:30
PROVIDERS: ADMIT Internal Medicine; ATTEND Internal Medicine
PROC: 02HV33Z Insertion of Infusion Device into Superior Vena Cava, Percutaneous Approach (ICD-10-PCS; principal; 2020-09-26)
PROC: 0FJD8ZZ Inspection of Pancreatic Duct, Via Natural or Artificial Opening Endoscopic (ICD-10-PCS; 2020-10-01)
DX: A41.51 Sepsis due to Escherichia coli [E. coli] (principal); E11.10 Type 2 diabetes mellitus with ketoacidosis without coma; J96.01 Acute respiratory failure with hypoxia; N17.0 Acute kidney failure with tubular necrosis; I21.A1 Myocardial infarction type 2; G93.41 Metabolic encephalopathy; E11.40 Type 2 diabetes mellitus with diabetic neuropathy, unspecified; I13.0 Hypertensive heart and chronic kidney disease with heart failure and stage 1 through stage 4 chronic kidney disease, or unspecified chronic kidney disease; I50.9 Heart failure, unspecified; K83.09 Other cholangitis; E11.22 Type 2 diabetes mellitus with diabetic chronic kidney disease; E83.42 Hypomagnesemia; K80.21 Calculus of gallbladder without cholecystitis with obstruction; K83.8 Other specified diseases of biliary tract; N39.0 Urinary tract infection, site not specified; N18.9 Chronic kidney disease, unspecified; M79.7 Fibromyalgia; G47.30 Sleep apnea, unspecified; F41.9 Anxiety disorder, unspecified; F32.9 Major depressive disorder, single episode, unspecified; G89.4 Chronic pain syndrome; E87.6 Hypokalemia; R65.21 Severe sepsis with septic shock; E66.9 Obesity, unspecified; Z79.4 Long term (current) use of insulin; Z79.899 Other long term (current) drug therapy; Z82.49 Family history of ischemic heart disease and other diseases of the circulatory system; Z20.828 Contact with and (suspected) exposure to other viral communicable diseases; Z68.41 Body mass index [BMI] 40.0-44.9, adult
CPT/HCPCS: 36415; 36556; 36600; 71045; 76705; 76770; 78445; 80048; 80053; 80076; 81001; 82009; 82150; 82306; 82803; 82947; 82948; 83036; 83605; 83690; 83735; 83880; 84100; 84443; 84484; 85025; 87040; 87081; 87086; 87804; 93005; 97112; 97116; 97161-GP; 97530; 99291; C1769; C9113; J0696; J1170; J1610; J1644; J1815; J1940; J2270; J2405; J2543; J2704; J3475; J3480; J3490; J7030; J7042; J7060; P9041

== ENCOUNTER 2021-01-06 04:53 | Emergency (ER) | payer OTHER, SELFPAY ==
[~2021-01-06] VITALS: Ht 152.4 cm; Wt 116.1 kg
[~2021-01-06 04:53] MED LIST changes: -APID SUBQ; +ATOR40TA PO; -BACL20TA4 PO; +BUPR-160 PO; +BUPR300T70 PO; -CALC500T19 PO; -CARV12.5 PO; -CETI10TA71 PO; +CIPR500T4 PO; +DIT5 PO; -DOCU-299 PO; +DULO30EC PO; -FERR-13 PO; -FURO-570 PO; +GLIP-297 PO; -HYDR-5191 PO; -IBUP-1842 PO; -LANTUS SUBQ; -LEVO500T6 PO; +LID5T TP; +LISI5TAB18 PO; -LOSA100T1 PO; -LOTC TP; +METF500T PO; -METF850T PO; -MIRT-91 PO; -MSCON15 PO; -PARO-42 PO; -PRED10TA5 PO; -PREG200C PO; +PREG300C PO; -SPIR50TA PO; +[UNRECOGNIZED DRUG - CODE] PO
[2021-01-06] MEDS ORDERED: LORazepam 2 MG/ML VIAL IVP ONE (05:10)
[2021-01-06 05:18] VITALS: BP 131/73
--- NOTE | 2021-01-06 05:40 | NUR ---
PT BIBA TO BED 9.
--- NOTE | 2021-01-06 05:41 | NUR ---
20G IV SITE ESTABLISHED TO R AC FLUSHED SITE WITH 10 ML OF 0.9% NS SITE WAS PATENT. NO C/O DISCOMFORT, SWELLING OR REDNESS NOTED. BLOOD DRAW THROUGH SITE AND SENT TO LAB.
[2021-01-06 05:42] LABS: BASOPHILS # (AUTO) 0.1 K/uL (0.00-0.22); BASOPHILS % (AUTO) 0.6 % (0.0-2.0); EOSINOPHILS # (AUTO) 0.5 K/uL (0-0.4); EOSINOPHILS % (AUTO) 3.8 % (0.0-4.0); HEMATOCRIT 37.2 % (36-48); HEMOGLOBIN 12.2 g/dL (12.0-16.0); LYMPHOCYTES # (AUTO) 1.7 K/uL (2.5-16.5); LYMPHOCYTES % (AUTO) 13.6 % (20.5-51.1); MEAN CORPUSCULAR HEMOGLOBIN 30 pg (27-31); MEAN CORPUSCULAR HGB CONC 33 g/dL (33-37); MEAN CORPUSCULAR VOLUME 90.6 fL (80-94); MONOCYTES # (AUTO) 0.7 K/uL (0.8-1.0); MONOCYTES % (AUTO) 5.7 % (1.7-9.3); NEUTROPHILS # (AUTO) 9.5 K/uL (1.8-7.7); NEUTROPHILS % (AUTO) 76.3 % (42.2-75.2); PLATELET COUNT (AUTO) 265 K/uL (140-450); WHITE BLOOD COUNT (AUTO) 12.4 K/uL (4.8-10.8)
--- NOTE | 2021-01-06 05:50 | NUR ---
Notified ERMJose re: HR 49-50's, stated ok to give Ativan.
--- NOTE | 2021-01-06 05:56 | NUR ---
55 y/o female biba due to complain of gen weakness,fatigue, flu like s/sx, and chills x2 days now. On assessment, patient is a/ox4, able to verbalize needs. Denies any chest pain. No c/o cough/congestion/fever. Respiration is even and non-labored. Abd is rounded, non-tender. BS taken 57. Denies nausea/vomiting. Skin is intact. ERMD at bedside. Left patient in a comfortable postion, bed low and bilat side rails upx2. PHX: DM2, HTN, Depression, Anxiety Allergy: NKA
[2021-01-06 05:59] LABS: ALBUMIN 3.9 g/dL (3.4-5.0); CARBON DIOXIDE 24.1 mmol/L (21-32); CREATININE 1.2 mg/dL (0.6-1.3); POTASSIUM 3.1 mmol/L (3.5-5.1); TOTAL BILIRUBIN 0.2 mg/dL (0.0-1.0)
[2021-01-06 06:01] LABS: BILIRUBIN,URINE NEGATIVE (NEGATIVE); BLOOD, URINE NEGATIVE (NEGATIVE); COLOR,URINE YELLOW (YELLOW); LEUKOCYTE ESTERASE ,URINE NEGATIVE (NEGATIVE); NITRITE, URINE POSITIVE (NEGATIVE); UGLUCOSE 3+ (NEGATIVE)
[2021-01-06 06:23] LABS: APPEARANCE,URINE HAZY (CLEAR); RBC,URINE 0-5 /HPF (0-5); WBC,URINE 0-5 /HPF (0-5)
--- NOTE | 2021-01-06 06:40 | NUR ---
Spoke to Michelle (dtr-in-law), she said she is coming to pick-up the patient in 10mins.
--- NOTE | 2021-01-06 07:12 | NUR ---
Report given to Connie CALABRESE for continuity of care.
--- NOTE | 2021-01-06 07:12 | NUR ---
report received from Soumya CALABRESE, transfer of care at this time.
[2021-01-06 07:31] VITALS: BP 131/73
--- NOTE | 2021-01-06 07:37 | NUR ---
Patient discharged with v/s stable. Written and verbal after care instructions given and explained. Patient alert, oriented and verbalized understanding of instructions. Wheel Chair Assisted with to home. All questions addressed prior to discharge. ID band removed. Patient advised to follow up with PMD. Rx of Macrobid given. Patient educated on indication of medication including possible reaction and side effects. Opportunity to ask questions provided and answered.
== END 2021-01-06 06:40 | disposition home or self-care (01) ==
LOC: MED 04:53
DX: F41.9 Anxiety disorder, unspecified (principal); N39.0 Urinary tract infection, site not specified; R42 Dizziness and giddiness; I51.9 Heart disease, unspecified; E11.9 Type 2 diabetes mellitus without complications; Z79.899 Other long term (current) drug therapy
CPT/HCPCS: 36415; 80053; 81001; 84484; 85025; 87086; 93005; 96372; 99284; J2060

== ENCOUNTER 2021-04-22 17:32 | Emergency (ER) | payer OTHER, SELFPAY ==
[~2021-04-22] VITALS: Ht 170.2 cm; Wt 117.9 kg
[2021-04-22 17:48] VITALS: BP 148/73
[2021-04-22 18:30] VITALS: BP 148/73
== END 2021-04-22 18:30 | disposition home or self-care (01) ==
LOC: MED 17:32
DX: T83.098A Other mechanical complication of other urinary catheter, initial encounter (principal); I11.9 Hypertensive heart disease without heart failure; E11.9 Type 2 diabetes mellitus without complications
CPT/HCPCS: 81002; 99281; 99282

== ENCOUNTER 2021-05-07 00:05 | Emergency (ER) | payer OTHER ==
[~2021-05-07] VITALS: Ht 170.2 cm; Wt 108.0 kg
[2021-05-07 00:11] VITALS: BP 114/77
[2021-05-07] MEDS ORDERED: HYDROXYZINE HYDROCHLORIDE 25 MG TAB PO ONE (00:45)
[2021-05-07 01:01] LABS: BASOPHILS # (AUTO) 0.1 K/uL (0.00-0.22); BASOPHILS % (AUTO) 0.6 % (0.0-2.0); EOSINOPHILS # (AUTO) 0.4 K/uL (0-0.4); HEMATOCRIT 35.6 % (36-48); HEMOGLOBIN 11.7 g/dL (12.0-16.0); LYMPHOCYTES # (AUTO) 2.5 K/uL (2.5-16.5); LYMPHOCYTES % (AUTO) 26.1 % (20.5-51.1); MEAN CORPUSCULAR HEMOGLOBIN 29 pg (27-31); MEAN CORPUSCULAR HGB CONC 33 g/dL (33-37); MEAN CORPUSCULAR VOLUME 87.1 fL (80-94); MONOCYTES # (AUTO) 0.6 K/uL (0.8-1.0); MONOCYTES % (AUTO) 6.4 % (1.7-9.3); NEUTROPHILS # (AUTO) 6.1 K/uL (1.8-7.7); NEUTROPHILS % (AUTO) 62.9 % (42.2-75.2); PLATELET COUNT (AUTO) 275 K/uL (140-450); RED BLOOD CELL COUNT(AUTO) 4.09 MIL/uL (4.20-5.40); RED CELL DISTRIBUTION WIDTH 14.1 % (11.6-13.7); WHITE BLOOD COUNT (AUTO) 9.6 K/uL (4.8-10.8)
[2021-05-07 01:19] LABS: ALBUMIN 3.7 g/dL (3.4-5.0); ANION GAP 13.2 (8-16); CARBON DIOXIDE 27.3 mmol/L (21-32); CREATININE 1.2 mg/dL (0.6-1.3); POTASSIUM 3.5 mmol/L (3.5-5.1); TOTAL BILIRUBIN 0.3 mg/dL (0.0-1.0)
[2021-05-07] MEDS ORDERED: ATA25 PO (01:53)
[2021-05-07 02:08] VITALS: BP 105/77
== END 2021-05-07 02:08 | disposition home or self-care (01) ==
LOC: MED 00:05
DX: L29.9 Pruritus, unspecified (principal); J44.9 Chronic obstructive pulmonary disease, unspecified; E11.9 Type 2 diabetes mellitus without complications; I10 Essential (primary) hypertension; Z79.84 Long term (current) use of oral hypoglycemic drugs; Z79.899 Other long term (current) drug therapy
CPT/HCPCS: 36415; 80053; 82803; 85025; 99283

== ENCOUNTER 2021-08-05 00:33 | Emergency (ER) | payer OTHER ==
[~2021-08-05] VITALS: Ht 170.2 cm; Wt 116.1 kg
[~2021-08-05 00:33] MED LIST changes: +ATA25 PO
[2021-08-05 00:45] VITALS: BP 128/47
--- NOTE | 2021-08-05 00:45 | NUR ---
PT BERNARD BLS. TAKEN TO BED 2
--- NOTE | 2021-08-05 01:09 | NUR ---
Dr. Julio examining patient.
--- NOTE | 2021-08-05 01:12 | NUR ---
Note undone in EDM - 08/05/21 at 0117 by JED 55 y/o F BIB self from home c/o suprapubic pain s/p catheter change today. Patient presents with a suprapubic catheter that was recently changed. Pt states after the change, sensitivity and pain to the site. Clear drainaged noted to suprapubic catheter site. Patient reports 8/10, sharp/constant, non-radiating pain. Patient reports seen and discharged today and states her doctor states no pain medication required. Catheter in place 1 month ago. Patient reports pain worsens with sitting/standing. Denies nausea, vomiting, diarrhea, abdominal pain, chest pain, fever, chills. Bed locked in lowest position, side rails x 1, call light in reach. VSS; respirations even/unlabored.
--- NOTE | 2021-08-05 01:22 | NUR ---
Report and transfer of care endorsed to BHARATI Madden
--- NOTE | 2021-08-05 01:28 | NUR ---
DAUGHTER DAIN [phone]
[2021-08-05 01:37] LABS: BASOPHILS % (AUTO) 0.3 % (0.0-2.0); EOSINOPHILS # (AUTO) 0.2 K/uL (0-0.4); EOSINOPHILS % (AUTO) 2.1 % (0.0-4.0); HEMATOCRIT 38.4 % (36-48); HEMOGLOBIN 12.3 g/dL (12.0-16.0); LYMPHOCYTES # (AUTO) 1.4 K/uL (2.5-16.5); LYMPHOCYTES % (AUTO) 11.6 % (20.5-51.1); MEAN CORPUSCULAR HEMOGLOBIN 27 pg (27-31); MEAN CORPUSCULAR HGB CONC 32 g/dL (33-37); MEAN CORPUSCULAR VOLUME 85.6 fL (80-94); MONOCYTES # (AUTO) 0.7 K/uL (0.8-1.0); MONOCYTES % (AUTO) 6.1 % (1.7-9.3); NEUTROPHILS # (AUTO) 9.3 K/uL (1.8-7.7); NEUTROPHILS % (AUTO) 79.9 % (42.2-75.2); PLATELET COUNT (AUTO) 277 K/uL (140-450); RED BLOOD CELL COUNT(AUTO) 4.49 MIL/uL (4.20-5.40); WHITE BLOOD COUNT (AUTO) 11.7 K/uL (4.8-10.8)
[2021-08-05] MEDS ORDERED: KETOROLAC 30 MG/ML VIAL IM ONE (01:45)
--- NOTE | 2021-08-05 02:00 | NUR ---
MEDICATED PER ERMDS ORDER, TOLERATED WELL.
[2021-08-05 02:01] LABS: ALBUMIN 3.5 g/dL (3.4-5.0); ANION GAP 12.3 (8-16); CARBON DIOXIDE 26.2 mmol/L (21-32); CREATININE 1.1 mg/dL (0.6-1.3); POTASSIUM 3.5 mmol/L (3.5-5.1); TOTAL BILIRUBIN 0.2 mg/dL (0.0-1.0)
[2021-08-05] MEDS ORDERED: cefTRIAXone 1,000 MG in LIDOCAINE MPF 1% 2.1 ML IM ONE (02:05)
[2021-08-05] MEDS ORDERED: cefTRIAXone 1,000 MG VIAL ONE (02:11)
[2021-08-05] MEDS ORDERED: LIDOCAINE MPF 1% 5 ML ONE (02:12)
[2021-08-05] MEDS ORDERED: ONDANSETRON 4 MG ODT PO ONE (03:25)
[2021-08-05] MEDS ORDERED: HYDROcodone/APAP 5/325 MG 1 TAB TAB PO ONE (03:25)
--- NOTE | 2021-08-05 04:25 | NUR ---
RESULTS BACK AND NOTED BY ERMD AND FOR D/C
[2021-08-05] MEDS ORDERED: ONDA-24 PO (04:35)
[2021-08-05] MEDS ORDERED: CEPH500C16 PO (04:35)
[2021-08-05] MEDS ORDERED: ACET-8386 PO (04:35)
[2021-08-05 05:00] VITALS: BP 121/50
--- NOTE | 2021-08-05 05:00 | NUR ---
Patient discharged with v/s stable. Written and verbal after care instructions given and explained. Patient alert, oriented and verbalized understanding of instructions. Ambulatory with steady gait. All questions addressed prior to discharge. ID band removed. Patient advised to follow up with PMD. Rx of KEFLEX,ZOFRAN ODT, HYDROCODONE given. Patient educated on indication of medication including possible reaction and side effects. Opportunity to ask questions provided and answered.
== END 2021-08-05 05:00 | disposition home or self-care (01) ==
LOC: MED 00:33
DX: T81.49XA Infection following a procedure, other surgical site, initial encounter (principal); T83.84XA Pain due to genitourinary prosthetic devices, implants and grafts, initial encounter; J44.9 Chronic obstructive pulmonary disease, unspecified; E11.9 Type 2 diabetes mellitus without complications; I10 Essential (primary) hypertension; Z79.84 Long term (current) use of oral hypoglycemic drugs; Z79.899 Other long term (current) drug therapy; Y83.8 Other surgical procedures as the cause of abnormal reaction of the patient, or of later complication, without mention of misadventure at the time of the procedure
CPT/HCPCS: 36415; 74176; 80053; 83605; 85025; 96372; 99284; J0696; J1885; J2001; Q0162

== ENCOUNTER 2021-09-30 11:36 | Inpatient (IN) | payer OTHER ==
[~2021-09-30] VITALS: Ht 170.2 cm; Wt 135.6 kg
[~2021-09-30 11:36] MED LIST changes: +ACET-8386 PO; +CEPH500C16 PO; +ONDA-188 PO
[2021-09-30 11:48] VITALS: BP 105/34
--- NOTE | 2021-09-30 12:05 | NUR ---
56 Y/O FEMALE WITH C/O PAIN IN THE CASSANDRA-SUPRAPUBIC CATH AREA. CATHETER NOTED IN THE SUPRAPUBIC AREA. AREA IS RED AND TENDER TO TOUCH. URINE FLOWING FREELY, NOTED WITH COPIOUS SEDIMENT AND CLOUDY URINE. PER PT, CATHETER HAS NOT BEEN CHANGED IN MONTHS. URINE IS FOULD IN ODOR. PMHX:HEART PROBLEM(UNKNOWN), DM, HTN, SLEEP APNEA, HYPOTHYROIDSM, FIBROMYALGIA. ALLERGIES: DENIES HOME MEDS: MULT MEDS "UNABLE TO RECALL ANY"
--- NOTE | 2021-09-30 12:14 | NUR ---
ASHISH NUGENT AT BEDSIDE TO ASSESS PT
[2021-09-30] MEDS ORDERED: ONDANSETRON 4 MG/2 ML VIAL IVP ONE (12:20)
[2021-09-30] MEDS ORDERED: NACL 0.9% 1,000 ML IV SCH (12:20)
[2021-09-30] MEDS ORDERED: MORPHINE SULFATE 4 MG/ML SYR IVP ONE (12:20)
--- NOTE | 2021-09-30 12:27 | NUR ---
BLOOD DRAWN AND TAKEN TO LAB
--- NOTE | 2021-09-30 13:00 | NUR ---
Female Bead Filler accompanied female patient for supra pubic catherter insertion by ASHISH Gupta.
--- NOTE | 2021-09-30 13:05 | NUR ---
Urine collected and dipped, with results shown to ASHISH Gupta. Urine taken to lab.
[2021-09-30] MEDS ORDERED: cefTRIAXone 1,000 MG VIAL ONE (13:21)
[2021-09-30 13:29] LABS: BASOPHILS % (AUTO) 0.3 % (0.0-2.0); EOSINOPHILS # (AUTO) 0.4 K/uL (0-0.4); EOSINOPHILS % (AUTO) 5.1 % (0.0-4.0); HEMATOCRIT 34.2 % (36-48); HEMOGLOBIN 11.2 g/dL (12.0-16.0); LYMPHOCYTES # (AUTO) 1.1 K/uL (2.5-16.5); LYMPHOCYTES % (AUTO) 13.3 % (20.5-51.1); MEAN CORPUSCULAR HEMOGLOBIN 28 pg (27-31); MEAN CORPUSCULAR HGB CONC 33 g/dL (33-37); MEAN CORPUSCULAR VOLUME 85.5 fL (80-94); MONOCYTES # (AUTO) 0.4 K/uL (0.8-1.0); MONOCYTES % (AUTO) 4.9 % (1.7-9.3); NEUTROPHILS # (AUTO) 6.4 K/uL (1.8-7.7); NEUTROPHILS % (AUTO) 76.4 % (42.2-75.2); PLATELET COUNT (AUTO) 289 K/uL (140-450); RED BLOOD CELL COUNT(AUTO) 4.01 MIL/uL (4.20-5.40); RED CELL DISTRIBUTION WIDTH 15.6 % (11.6-13.7); WHITE BLOOD COUNT (AUTO) 8.4 K/uL (4.8-10.8)
[2021-09-30 13:45] LABS: APPEARANCE,URINE HAZY (CLEAR); BILIRUBIN,URINE 1+ (NEGATIVE); BLOOD, URINE 3+ (NEGATIVE); COLOR,URINE RED (YELLOW); NITRITE, URINE POSITIVE (NEGATIVE); PH,URINE 6.5 (5.0-9.0); UGLUCOSE 3+ (NEGATIVE)
[2021-09-30 13:47] LABS: RBC,URINE TOO NUMEROUS TO COUN /HPF (0-5)
[2021-09-30 13:56] LABS: ALBUMIN 3.3 g/dL (3.4-5.0); ANION GAP 12.9 (8-16); CARBON DIOXIDE 25.9 mmol/L (21-32); CREATININE 1.7 mg/dL (0.6-1.3); POTASSIUM 3.8 mmol/L (3.5-5.1); TOTAL BILIRUBIN 0.3 mg/dL (0.0-1.0)
[2021-09-30 14:08] LABS: LEUKOCYTE ESTERASE ,URINE 1+ (NEGATIVE)
[2021-09-30 14:09] LABS: WBC,URINE 0-5 /HPF (0-5); YEAST,URINE Few /HPF (None Seen)
[2021-09-30] MEDS: OXYBUTYNIN 5 MG TAB PO SCH (14:27)
[2021-09-30] MEDS ORDERED: NACL 0.9% 1,000 ML IV ONE (15:15)
[2021-09-30] MEDS ORDERED: HYDROcodone/APAP 7.5/325 MG 1 TAB PO ONE (15:45)
--- NOTE | 2021-09-30 16:20 | NUR ---
Patient appears to be resting comfortably in bed. Vital Signs within normal limits. Respirations even and unlabored. All needs met and attended to
--- NOTE | 2021-09-30 17:00 | NUR ---
Patient appears to be resting comfortably in bed. Vital Signs within normal limits. Respirations even and unlabored. Pt give dinner at this time. Offered to go to the restroom.
[2021-09-30] MEDS ORDERED: ONDANSETRON 4 MG/2 ML VIAL IVP PRN (17:15)
[2021-09-30] MEDS ORDERED: ZOLPIDEM 5 MG TAB PO PRN (17:15)
[2021-09-30] MEDS ORDERED: ACETAMINOPHEN 325 MG TAB PO PRN (17:15)
--- NOTE | 2021-09-30 18:01 | NUR ---
Patient appears to be resting comfortably in bed. Vital Signs within normal limits. Respirations even and unlabored. Pt declined to use the restroom.
--- NOTE | 2021-09-30 19:15 | NUR ---
Pt report given to Mo CALABRESE. Transfer of care at this time.
--- NOTE | 2021-09-30 21:05 | NUR ---
PATIENT STABLE TRANSFERED TO ROOM 111 A VITALS SIGNS IN NORMAL LIMITS SR ON MONITORS REPORTED GAVE TO KAY CALABRESE //Salazar CALABRESE
[2021-09-30 21:20] VITALS: BP 126/50
--- NOTE | 2021-09-30 21:20 | NUR ---
PT ARRIVED TO THE UNIT BY SAADIA. PT IS A&OX4, NO S/S OF DISTRESS, ON RA, SKIN IS DRY,INTACT, AND NON DIAPHORETIC. IV ON THE RAC 20G SALINE LOCK. SUPRAPUBIC CATHETER INTACT AND DRAINING LIGHT YELLOW URINE. LUNG SOUNDS CLEAR, BOWEL SOUNDS ACTIVE ON ALL QUADRANTS. MRSA SWAB COMPLETED. PLAN OF CARE DISCUSSED. SAFETY MEASURES IN PLACE, CALL LIGHT WITHIN REACH, WILL CONTINUE TO MONITOR.
--- NOTE | 2021-09-30 23:05 | NUR ---
PT IN BED WATCHING TV. NO SIGNS OF DISTRESS. NEEDS STANDBY ASSISTANCE WHEN PULLING UP IN BED. ALL SAFETY MEASURES IN PLACE. WILL CONTINUE TO MONITOR.
[2021-09-30] MEDS ORDERED: MORPHINE SULFATE 2 MG/ML SYR IVP ONE (23:20)
--- NOTE | 2021-10-01 00:06 | NUR ---
PT COMPLAIN OF PAIN 10/10 ON SUPRAPUBIC CATHETER. REQUESTED PAIN MEDS. PT RECEIVED MORPHINE IVP ORDERED. PT TOLERATED IT WELL. SAFETY MEASURES IN PLACE, CALL LIGHT WITHIN REACH, AND WILL REASSESS PAIN.
--- NOTE | 2021-10-01 01:27 | NUR ---
PATIENT GIVEN PAIN MED MORPHINE . 06/26 STATED PAIN LEVEL FROM PATIENT. PAIN FELT IN ABDOMEN AND PT STATED HAVING BODY ACHES Addendum: 10/02/21 at 0610 by Hillary Moncada RN RN PAIN MED GIVEN 10/02/21 AT 0127
[2021-10-01] MEDS: HYDROcodone/APAP 5/325 MG 1 TAB TAB PO PRN ×2 (02:17→10:28)
--- NOTE | 2021-10-01 02:17 | NUR ---
PT COMPLAINS OF PAIN ALL OVER BODY. REQUESTED ANOTHER PAIN MED. NORCO TAB GIVEN ORDERED. PT TOLERATED WELL. ALL SAFETY PRECAUTIONS IN PLACE.
[2021-10-01 04:00] VITALS: BP 111/50
[2021-10-01] MEDS: LORazepam 1 MG TAB PO PRN (04:51)
--- NOTE | 2021-10-01 04:51 | NUR ---
PT ANXIOUS AND REQUESTED ANXIETY MEDICATION. PT GIVEN ATIVAN BY CHARGE NURSE ORDERED. SAFETY MEASURES IN PLACE, CALL LIGHT WITHIN REACH, AND WILL CONTINUE TO MONITOR.
[2021-10-01 06:39] LABS: BASOPHILS % (AUTO) 0.5 % (0.0-2.0); EOSINOPHILS # (AUTO) 0.3 K/uL (0-0.4); EOSINOPHILS % (AUTO) 4.4 % (0.0-4.0); HEMATOCRIT 31.4 % (36-48); HEMOGLOBIN 10.4 g/dL (12.0-16.0); LYMPHOCYTES # (AUTO) 1.3 K/uL (2.5-16.5); MEAN CORPUSCULAR HEMOGLOBIN 28 pg (27-31); MEAN CORPUSCULAR HGB CONC 33 g/dL (33-37); MEAN CORPUSCULAR VOLUME 84.6 fL (80-94); MONOCYTES # (AUTO) 0.4 K/uL (0.8-1.0); MONOCYTES % (AUTO) 6.3 % (1.7-9.3); NEUTROPHILS # (AUTO) 4.7 K/uL (1.8-7.7); NEUTROPHILS % (AUTO) 69.8 % (42.2-75.2); PLATELET COUNT (AUTO) 254 K/uL (140-450); RED BLOOD CELL COUNT(AUTO) 3.72 MIL/uL (4.20-5.40); RED CELL DISTRIBUTION WIDTH 15.1 % (11.6-13.7); WHITE BLOOD COUNT (AUTO) 6.7 K/uL (4.8-10.8)
[2021-10-01 07:01] LABS: ANION GAP 12.2 (8-16); CARBON DIOXIDE 25.4 mmol/L (21-32); CREATININE 1.1 mg/dL (0.6-1.3); PHOSPHORUS 2.7 mg/dL (2.5-4.9); POTASSIUM 3.6 mmol/L (3.5-5.1); TOTAL BILIRUBIN 0.3 mg/dL (0.0-1.0)
--- NOTE | 2021-10-01 07:30 | NUR ---
ENDORSED TO AM SHIFT NURSE FOR CONTINUITY OF CARE. PT IS STABLE.
--- NOTE | 2021-10-01 07:34 | NUR ---
RECEIVED REPORT FROM NIGHT NURSE FOR CONTINUITY OF CARE. PATIENT IS AWAKE, NO DISTRESS NOTED. BREATHING IS EVEN AND UNLABORED. DENIES PAIN. RAC 20G LINE INTACT. ON MEDSURG. RESTING IN BED. CALL LIGHT WITHIN REACH. PT IS STABLE.
[2021-10-01 08:00] VITALS: BP 109/78
[2021-10-01] MEDS: LIDOCAINE 5% 1 EA PATCH TP SCH (09:00)
[2021-10-01] MEDS: DOCUSATE SODIUM 100 MG GELCAP PO SCH (09:00)
[2021-10-01] MEDS: ENOXAPARIN 40 MG/0.4 ML SYR SUBQ SCH (09:00)
[2021-10-01] MEDS: DULoxetine 30 MG CAPDR PO SCH (09:00)
[2021-10-01] MEDS: OXYBUTYNIN 5 MG TAB PO SCH ×4 (09:00→17:58)
[2021-10-01] MEDS: ATORVASTATIN 20 MG TAB PO SCH (09:00)
[2021-10-01] MEDS: MORPHINE SULFATE 4 MG/ML SYR IVP PRN ×4 (11:22→22:10)
[2021-10-01 12:00] VITALS: BP 111/68
--- NOTE | 2021-10-01 12:22 | NUR ---
PAIN MED GIVEN PRN PER MD ORDER. REASSESSED 1 HOUR LATER AND WAS EFFECTIVE.
[2021-10-01] MEDS ORDERED: DEXTROSE 50% 50 ML SYR IVP PRN (14:55)
[2021-10-01] MEDS ORDERED: INSULIN LISPRO SLIDING SCALE 100 UNITS/ML VIAL SUBQ PRN (14:55)
--- NOTE | 2021-10-01 15:22 | NUR ---
PAIN MED GIVEN PRN PER MD ORDER. REASSESSED 1 HOUR LATER AND WAS EFFECTIVE.
[2021-10-01 16:00] VITALS: BP 123/59
--- NOTE | 2021-10-01 16:04 | NUR ---
PATIENT HAS BEEN SCREENED AND CATEGORIZED MODERATE NUTRITION RISK. PATIENT WILL BE SEEN WITHIN 3-5 DAYS OF ADMISSION. 10/01/21 10/05/[address]
[2021-10-01] MEDS: BLOOD GLUCOSE MONITORING 1 DEV DEV FS SCH ×2 (16:30→20:43)
--- NOTE | 2021-10-01 19:00 | NUR ---
PAIN MED GIVEN PRN PER MD ORDER. WILL ENDORSE TO NIGHT NURSE TO CHECK IN 1 HOUR.
--- NOTE | 2021-10-01 19:30 | NUR ---
REPORT GIVEN TO THE NIGHT NURSE FOR CONTINUITY OF CARE.
--- NOTE | 2021-10-01 19:30 | NUR ---
RECEIVED BEDSIDE REPORT FROM AM SHIFT RN. PT HAS A RAMÍREZ CATHETER, SALINE LOCK RAC 20G. ON ROOM AIR, SAFETY MEASURES IN PLACE, CALL LIGHT WITHIN REACH. WILL CONTINUE TO MONITOR.
[2021-10-01 20:00] VITALS: BP 115/69
--- NOTE | 2021-10-01 20:43 | NUR ---
TOOK PATIENTS BLOOD SUGAR. BS AT 131. NO INSULIN NEEDED. PT STABLE WILL CONTINUE TO MONITOR.
--- NOTE | 2021-10-01 22:10 | NUR ---
PATIENT GIVEN PAIN MED MORPHINE. FELT PAIN IN ABDOMEN AND OVERALL ACHING ALL OVER BODY.
[2021-10-02] MEDS: MORPHINE SULFATE 4 MG/ML SYR IVP PRN ×7 (01:27→22:28)
--- NOTE | 2021-10-02 01:27 | NUR ---
PATIENT GIVEN MORPHINE. STATED 8/10 PAIN LEVEL. PT EXPRESSED FACIAL GRIMACING AND RESTLESSNESS. PAIN FELT IN ABDOMEN AND STATED HAVING BODY ACHES
[2021-10-02 04:00] VITALS: BP 118/60
--- NOTE | 2021-10-02 04:29 | NUR ---
MORPHINE GIVEN TO PATIENT. PT STATED 10/10 PAIN LEVEL. PAIN FELT IN ABDOMEN. WILL CONTINUE TO MONITOR.
[2021-10-02] MEDS: LORazepam 1 MG TAB PO PRN ×2 (05:30→21:21)
--- NOTE | 2021-10-02 05:51 | NUR ---
SECURED PTS SUPRAPUBIC CATHETER WITH TAPE ON SIDE OF THIGH. PT WAS HAVING SOME ANXIETY. GAVE PRN ATIVAN.
[2021-10-02] MEDS: BLOOD GLUCOSE MONITORING 1 DEV DEV FS SCH ×4 (06:33→21:17)
--- NOTE | 2021-10-02 06:33 | NUR ---
TOOK PATIENTS BLOOD SUGAR. BS IS 155. INSULIN LISPRO IS NEEDED PER SLIDING SCALE. PT GIVEN 2 UNITS
--- NOTE | 2021-10-02 06:50 | NUR ---
PATIENT IS SITTING IN A CHAIR. STATES THAT SITTING HAS RELIEVED HER ABDOMINAL PAIN QUITE A BIT.
[2021-10-02 07:06] LABS: BASOPHILS # (AUTO) 0.1 K/uL (0.00-0.22); BASOPHILS % (AUTO) 0.7 % (0.0-2.0); EOSINOPHILS # (AUTO) 0.2 K/uL (0-0.4); EOSINOPHILS % (AUTO) 3.2 % (0.0-4.0); HEMATOCRIT 34.4 % (36-48); HEMOGLOBIN 11.5 g/dL (12.0-16.0); LYMPHOCYTES # (AUTO) 1.4 K/uL (2.5-16.5); LYMPHOCYTES % (AUTO) 19.1 % (20.5-51.1); MEAN CORPUSCULAR HEMOGLOBIN 28 pg (27-31); MEAN CORPUSCULAR HGB CONC 33 g/dL (33-37); MEAN CORPUSCULAR VOLUME 83.9 fL (80-94); MONOCYTES # (AUTO) 0.5 K/uL (0.8-1.0); MONOCYTES % (AUTO) 6.8 % (1.7-9.3); NEUTROPHILS # (AUTO) 5.2 K/uL (1.8-7.7); NEUTROPHILS % (AUTO) 70.2 % (42.2-75.2); PLATELET COUNT (AUTO) 279 K/uL (140-450); RED CELL DISTRIBUTION WIDTH 15.1 % (11.6-13.7); WHITE BLOOD COUNT (AUTO) 7.5 K/uL (4.8-10.8)
--- NOTE | 2021-10-02 07:10 | NUR ---
PASSED ON BEDSIDE REPORT TO AM SHIFT RN. PT STABLE
--- NOTE | 2021-10-02 07:11 | NUR ---
RECEIVED BEDSIDE REPORT FROM NIGHT NURSE. PT IS A&O X4 AND RA. PATIENT IS SLEEPING. BREATHING IS EVEN AND UNLABORED. NO S/S OF DISTRESS. SAFETY MEASURES IN PLACE, CALL LIGHT WITHIN REACH. PT STABLE.
[2021-10-02 07:13] LABS: ALBUMIN 3.4 g/dL (3.4-5.0); ANION GAP 15.5 (8-16); CARBON DIOXIDE 24.1 mmol/L (21-32); MAGNESIUM 1.6 mg/dL (1.8-2.4); POTASSIUM 3.6 mmol/L (3.5-5.1); TOTAL BILIRUBIN 0.5 mg/dL (0.0-1.0)
[2021-10-02 08:00] VITALS: BP 109/58
[2021-10-02] MEDS: FLUCONAZOLE 100 MG/NS PREMIX 50 ML IV SCH (08:30)
[2021-10-02] MEDS: LIDOCAINE 5% 1 EA PATCH TP SCH (09:00)
[2021-10-02] MEDS: DOCUSATE SODIUM 100 MG GELCAP PO SCH (09:00)
[2021-10-02] MEDS: buPROPion 150 MG TABER PO SCH (09:00)
[2021-10-02] MEDS: ATORVASTATIN 20 MG TAB PO SCH (09:00)
[2021-10-02] MEDS ORDERED: DULoxetine 30 MG CAPDR PO SCH (09:00)
[2021-10-02] MEDS: ENOXAPARIN 40 MG/0.4 ML SYR SUBQ SCH (09:00)
[2021-10-02] MEDS: OXYBUTYNIN 5 MG TAB PO SCH ×3 (09:00→17:00)
[2021-10-02] MEDS: DULoxetine 30 MG CAPDR PO SCH (09:00)
[2021-10-02 12:00] VITALS: BP 111/71
--- NOTE | 2021-10-02 12:58 | NUR ---
DC PLANNING CINDY CALLED PATIENT'S PCP OFFICE AT SPOKE TO HAKAN TO SCHEDULED AN OUTPATIENT FOLLOW UP APPOINMENT FOR PATIENT ON 10/05/2021 AT 12:00PM [place] [id number] [facility] [id number]. CINDY MEET WITH PATIENT AGAIN TO DISCUSS AND INFORM HER OF ALREADY SCHEDULED FOLLOW UP APPOINTMENT WITH MD GUSTAVO ALMANZA ON 10/15/2021 AT 12:00PM. CINDY PROVIDED PATIENT WITH AN APPOINTMENT NOTE WITH ADDRESS, TIME, DATE, AND DETAIL REMINDERS FOR PATIENT TO FOLLOW UP. PATIENT AGREED TO ATTEND. Addendum: 10/02/21 at 1456 by Claudia Valadez CM DC PLANNING PATIENT IS A 56-YEAR-OLD FEMALE ADMITTED IN THE [facility]/ED ON 09/30/2021 DUE TO URINARY TRACK INFECTION. CINDY MET WITH PATIENT AT BEDSIDE TO DISCUSS AND GATHER HER COLLATERAL INFORMATION. PATIENT REPORTED LIVING AT HOME WITH HER SON, ABIOLA IN [place] AND HER 3 GRANDCHILDREN. PER PATIENT HER DAUGHTER IN[place] YUNIEL ARNDT IS HER EMERGENCY CONTACT AND HAS BEEN HER SUPPORT SYSTEM AT HOME. PER PATIENT YUNIEL TAKES CARE OF HER WHEN SHE NEEDS HELP. PATIENT REPORTED THAT SHE HAS NO ADVANCE DIRECTIVES DONE AND PATIENT DECLINED A.D. INF. PACKET PROVIDED BY CINDY. PATIENT REPORTED NOT HAVING ANY ISSUES GETTING OR TAKING HER MEDICATIONS, STATED THAT HER PHARMACY MAILS HER MEDICATION TO HER HOME. PATIENT ALSO REPORTED HAVING A WALKER, CANE AND SHOWER CHAIR AT HOME HER DME. PER PATIENT SHE HAS MD SANIA VALDEZ HER PCP. IN [facility],AND GOES TO SEE HIM WHEN SHE NEEDS TO SEE HER MD. LAST VISIT WAS ABOUT 3 WEEKS AGO. SW INFORMED PATIENT THAT AN APPOINMENT HAS BEEN SCHEDULED FOR HER AND HANDED A NOTE TO HER WITH APPOINMENT INFORMATION TO MD GUSTAVO ALMANZA ON 10/05/2021 AT 12:00PM [place] [address] [place] [address]. PATIENT THANKED THESE HEALTH INFORMATICS SPECIALIST AND AGREED TO ATTEND. PATIENT REPORTED THAT HER DAUGHTER [place] AR[place] OR HER SON WILL BE PICKING HER UP AND TRANSPORT HER BACK HOME AFTER HER DISCHARGE FROM [facility]. SW THANK HER FOR HER INF. AND LEFT HER ROOM. SW WILL FOLLOW UP NEEDED.
--- NOTE | 2021-10-02 13:45 | NUR ---
DC PLANNING: THE PATIENT ADMITTED THROUGH THE ER WITH S/S OF UTI. THE PATIENT HAS A H/O OF CHRONIC SUPRAPUBIC CATHETER WITH PREVIOUS UTI'S AND MDRO'S. CM SPOKE WITH THE PATIENT AT BEDSIDE, CONFIRMED HER ADDRESS AND PHONE NUMBER PER HER FACE SHEET. THE PATIENT LIVES IN A SECOND FLOOR APARTMENT WITH HER 2 SONS, 3 GRANDCHILDREN AND DAUGHTER IN [place]. SHE HAS NO H/O HOME HEALTH AND HAS DME OF A CANE, FWW AND SHOWER BENCH. SHE SOMETIMES REQUIRES ASSISTANCE WITH ADL'S AND USES A FWW TO AMBULATE. SHE HAS INCOME OF [employer] AND ALSO GETS FOOD STAMPS. SHE HAS A H/O SLEEP APNEA AND WILL BE FOLLOWING UP WITH HER PRIMARY TO GET A SLEEP STUDY. SHE CURRENTLY SLEEPS IN HER RECLINER IT IS MORE COMFORTABLE FOR HER, AND SEES A FOOD AND BEVERAGE CASHIER IN [place] FOR BACK PAIN. SHE ALSO FOLLOWS UP WITH DR. VENTURA, UROLOGIST, AND WAS IN A SNF IN 2013 BUT CAN'T REMEMBER THE NAME. THE DCP IS FOR HER TO RETURN HOME WITH HER FAMILY, CM WILL FOLLOW FOR NEEDS.
[2021-10-02 16:00] VITALS: BP 116/62
--- NOTE | 2021-10-02 19:25 | NUR ---
ENDORSED TO HUMIDIFIER OPERATOR NURSE FOR CONTINUITY OF CARE. PT IS STABLE.
--- NOTE | 2021-10-02 19:35 | NUR ---
RECEIVED REPORT FROM MORNING SHIFT FOR CONTINUITY OF CARE. PATIENT IS STABLE IN BED. A&OX4. VERBALLY RESPONSIVE AND ABLE TO COMMUNICATE NEEDS. DENIES PAIN AT THIS TIME. NEXT MORPHINE SCHEDULED AT 2155. NO APPARENT S/SX OF ACUTE DISTRESS. ON ROOM AIR. BREATHING EVEN AND UNLABORED. RIGHT HAND 22G SL PATENT/INTACT. SUPRAPUBIC CATHETER WITH OUT OF CLEAR YELLOW PRESENT. PATIENT IS CONTINENT AND AMBULATORY. PLAN OF CARE AND WHITE COMMUNICATION BOARD UPDATED. BED IN LOW/LOCKED POSITION. CALL LIGHT WITHIN REACH. PATIENT ENCOURAGED TO CALL FOR ANY NEEDS/ASSISTANCE. WILL CONTINUE TO MONITOR.
[2021-10-02 20:00] VITALS: BP 122/73
--- NOTE | 2021-10-02 20:00 | NUR ---
PLAN OF CARE REVIEWED AND DISCUSSED WITH PIPE SMOKING MACHINE OFFBEARER'S JENNY.
[2021-10-02] MEDS ORDERED: LIDOCAINE 5% 1 EA PATCH TP SCH (21:00)
--- NOTE | 2021-10-02 21:17 | NUR ---
CHECKED PATIENT'S BLOOD SUGAR. COVERAGE NOT NEEDED PER MD ORDER. PATIENT REFUSED LIDOCAINE PATCH. PATIENT STATED "IT DOES NOT SEEM TO WORK". PATIENT REQUESTED FOR BENADRYL AND MORPHINE SULFATE. NEXT SCHEDULED BENADRYL AT 1943 AND MORPHINE SULFATE AT 1954. WILL ENDORSE MORPHINE SULFATE IVP TO RN.
[2021-10-02] MEDS ORDERED: MAG SULF 2000 MG/WATER PREMIX 50 ML IV SCH (21:35)
[2021-10-02 22:01] VITALS: BP 129/73
--- NOTE | 2021-10-02 22:40 | NUR ---
ANSWERED CALL LIGHT. PATIENT REQUESTED TO REPLACE WRAPS PROTECTING IV SITE. WILL RETURN TO PATIENT'S ROOM WITH NEW WRAPS.
--- NOTE | 2021-10-03 00:40 | NUR ---
CHECKED PATIENT. STABLE AND ASLEEP IN SUPINE POSITION. CHEST RISING AND FALLING. RESPIRATIONS EVEN AND UNLABORED. NO APPARENT S/SX OF ACUTE DISTRESS. WHITE COMMUNICATION BOARD UPDATED. ALL SAFETY MEASURES IN PLACE. CALL LIGHT WITHIN REACH. WILL CONTINUE TO MONITOR.
[2021-10-03 02:07] VITALS: BP 115/61
--- NOTE | 2021-10-03 02:15 | NUR ---
ANSWERED CALL LIGHT. PATIENT C/O OF ABD PAIN 07/27. BP TAKEN. WILL ENDORSE TO RN MARTÍN FOR MORPHINE SULFATE IVP.
[2021-10-03] MEDS: MORPHINE SULFATE 4 MG/ML SYR IVP PRN ×5 (02:19→14:58)
--- NOTE | 2021-10-03 04:15 | NUR ---
CHECKED PATIENT. STABLE AND WATCHING A SHOW ON CELL PHONE. PATIENT DENIES PAIN AT THIS TIME BUT REMINDED NURSE THAT PAIN MEDICATION IS DUE IN AN HOUR. RESPIRATIONS EVEN AND UNLABORED. NO APPARENT S/SX OF ACUTE DISTRESS. WHITE COMMUNICATION BOARD UPDATED. ALL SAFETY MEASURES IN PLACE. CALL LIGHT WITHIN REACH. WILL CONTINUE TO MONITOR.
--- NOTE | 2021-10-03 05:35 | NUR ---
ANSWERED CALL LIGHT. PATIENT C/O OF ABD PAIN 07/27. WILL TAKE BP FOR MORPHINE SULFATE PRIOR TO ENDORSEMENT TO RN FOR ADMINISTRATION.
[2021-10-03 05:50] VITALS: BP 121/51
[2021-10-03] MEDS: BLOOD GLUCOSE MONITORING 1 DEV DEV FS SCH ×2 (06:31→12:08)
[2021-10-03 07:01] LABS: BASOPHILS % (AUTO) 0.5 % (0.0-2.0); EOSINOPHILS # (AUTO) 0.2 K/uL (0-0.4); EOSINOPHILS % (AUTO) 3.8 % (0.0-4.0); HEMATOCRIT 32.6 % (36-48); HEMOGLOBIN 10.9 g/dL (12.0-16.0); LYMPHOCYTES # (AUTO) 1.2 K/uL (2.5-16.5); LYMPHOCYTES % (AUTO) 21.5 % (20.5-51.1); MEAN CORPUSCULAR HEMOGLOBIN 28 pg (27-31); MEAN CORPUSCULAR HGB CONC 33 g/dL (33-37); MEAN CORPUSCULAR VOLUME 84.2 fL (80-94); MONOCYTES # (AUTO) 0.4 K/uL (0.8-1.0); MONOCYTES % (AUTO) 7.5 % (1.7-9.3); NEUTROPHILS # (AUTO) 3.9 K/uL (1.8-7.7); NEUTROPHILS % (AUTO) 66.7 % (42.2-75.2); PLATELET COUNT (AUTO) 268 K/uL (140-450); RED BLOOD CELL COUNT(AUTO) 3.87 MIL/uL (4.20-5.40); RED CELL DISTRIBUTION WIDTH 14.7 % (11.6-13.7); WHITE BLOOD COUNT (AUTO) 5.8 K/uL (4.8-10.8)
[2021-10-03 07:14] LABS: ALBUMIN 3.1 g/dL (3.4-5.0); ANION GAP 14.1 (8-16); CARBON DIOXIDE 25.8 mmol/L (21-32); MAGNESIUM 2.1 mg/dL (1.8-2.4); TOTAL BILIRUBIN 0.3 mg/dL (0.0-1.0)
--- NOTE | 2021-10-03 07:15 | NUR ---
PATIENT ENDORSED TO MORNING SHIFT FOR CONTINUITY OF CARE. PATIENT IS STABLE.
--- NOTE | 2021-10-03 07:46 | NUR ---
BEDSIDE REPORT RECEIVED. PT RESTING IN CHAIR IN DANGLING POSITION . BREATHING IS SYMMETRICAL AND UNLABORED . ALL SAFETY MEASURES IN PLACE.
[2021-10-03 07:49] LABS: POTASSIUM 2.9 mmol/L (3.5-5.1)
--- NOTE | 2021-10-03 07:50 | NUR ---
CRITICAL VALUE : K 2.9. IVIS ESPINOZA . AWAITING ORDERS. ALL SAFETY MEASURES ARE IN PLACE
[2021-10-03 08:00] VITALS: BP 130/77
--- NOTE | 2021-10-03 08:02 | NUR ---
RECEIVED CALL FROM Md ESPINOZA, ORDERS RECEIVED AND CARRIED THROUGH, ALL SAFETY MEASURES ARE IN PLACE.
[2021-10-03] MEDS: ENOXAPARIN 40 MG/0.4 ML SYR SUBQ SCH (08:19)
[2021-10-03] MEDS: buPROPion 150 MG TABER PO SCH (08:22)
[2021-10-03] MEDS: DOCUSATE SODIUM 100 MG GELCAP PO SCH (08:23)
[2021-10-03] MEDS: ATORVASTATIN 20 MG TAB PO SCH (08:23)
[2021-10-03] MEDS: OXYBUTYNIN 5 MG TAB PO SCH ×2 (08:23→12:12)
[2021-10-03] MEDS: DULoxetine 30 MG CAPDR PO SCH (08:23)
[2021-10-03] MEDS: FLUCONAZOLE 100 MG/NS PREMIX 50 ML IV SCH (08:24)
--- NOTE | 2021-10-03 08:25 | NUR ---
CRITICAL;L VALUE LACTIC ACID 3.3 . AWARE TRENDING DOWN . NO ACTION AT THIS TIME. ALL SAFETY MEASURES ARE IN PLACE. Addendum: 10/03/21 at 0922 by Maria Victoria Mcghee RN RN WRONG PATIENT
[2021-10-03] MEDS ORDERED: POTASSIUM CHLORIDE 10 MEQ TABER PO SCH (08:30)
--- NOTE | 2021-10-03 08:33 | NUR ---
MEDICATIONS GIVEN PER MD ORDER. PT EDUCATED AND VERBALIZED UNDERSTANDING ALL SAFETY MEASURES ARE IN PLACE.
--- NOTE | 2021-10-03 08:34 | NUR ---
PT REQUEST PAIN MEDICATION PT EDUCATED ON SCHEDULE. PT STATES MORPHINE IS BEING ADMINISTERED INCORRECTLY BECAUSE SHE DOES NOT FEEL IT AND IS IN PAIN . PT EDUCATED ON ADMINISTRATION AND WILL NOTIFY MD. PT EDUCATED ON ICE PACKS, MEDITATION AND RELAXATION TECHNIQUES
--- NOTE | 2021-10-03 08:59 | NUR ---
PT RESTING IN BED COMPLAINING OF 10/10 ABDOMEN PAIN THAT RADIATES ALL OVER AND TO BACK PT LISTENING TO SOFT MUSIC. ALL SAFETY MEASURE SIN PLACE.
--- NOTE | 2021-10-03 10:00 | NUR ---
PT COMPLAINS OF PAIN IN HER IV SITE. PATIENT REQUESTED NEW IV SITE. PATIENTS IV CHANGED FOR COMFORT,.OLD IV SITE IS NOT RED TENDER OR SWOLLEN ,
--- NOTE | 2021-10-03 11:58 | NUR ---
PT COMPLAINS OF 10/10 ABDOMINAL PAIN . PRN MEDICATION GIVEN PER MD ORDER. PT STATES MEDITATION , DISTRACTION AND ICE PACKS WERE INEFFECTIVE. ALL SAFETY MEASURES ARE IN PLACE
--- NOTE | 2021-10-03 12:25 | NUR ---
PAIN REASSESSED PATIENT STATES SHE IS FEELING BETTER BUT PAIN NEVER GOES AWAY. ALLL SAFETY MEASURES ARE IN PLACE.
[2021-10-03] MEDS ORDERED: ACET-8386 PO (13:02)
[2021-10-03] MEDS ORDERED: FLUC100T PO (13:02)
[2021-10-03] MEDS: LORazepam 1 MG TAB PO PRN (15:39)
--- NOTE | 2021-10-03 15:58 | NUR ---
DISCHARGE INSTRUCTIONS COMPLETE . PT EDUCATED ON CONTINUITY OF CARE. PT VERBALIZED UNDERSTANDING , IV REMOVED CANULA INTACT. SISTER IN LAW MADE AWARE AND WILL PICK HER UP SHORTLY. ID BAND REMOVED
== END 2021-10-03 16:15 | disposition home or self-care (01) | DRG 466 ==
LOC: MED 11:36 → MTU 17:19
PROVIDERS: ADMIT Internal Medicine; ATTEND Internal Medicine
DX: T83.84XA Pain due to genitourinary prosthetic devices, implants and grafts, initial encounter (principal); N17.0 Acute kidney failure with tubular necrosis; E66.9 Obesity, unspecified; N39.0 Urinary tract infection, site not specified; E78.00 Pure hypercholesterolemia, unspecified; E78.5 Hyperlipidemia, unspecified; I10 Essential (primary) hypertension; Z87.440 Personal history of urinary (tract) infections; E11.9 Type 2 diabetes mellitus without complications; Y83.8 Other surgical procedures as the cause of abnormal reaction of the patient, or of later complication, without mention of misadventure at the time of the procedure; Z98.84 Bariatric surgery status; Z79.891 Long term (current) use of opiate analgesic; Z79.899 Other long term (current) drug therapy; Z79.1 Long term (current) use of non-steroidal anti-inflammatories (NSAID); Z68.42 Body mass index [BMI] 45.0-49.9, adult; Y92.89 Other specified places as the place of occurrence of the external cause
CPT/HCPCS: 36415; 80053; 81001; 82948; 83036; 83605; 83690; 83735; 84100; 85025; 87040; 87081; 87086; 96361; 96365; 96375; 99285; J0696; J1450; J1650; J1815; J2270; J2405; J3475; J7060; Q0163

== ENCOUNTER 2022-06-05 16:52 | Inpatient (IN) | payer OTHER ==
[~2022-06-05] VITALS: Ht 170.2 cm; Wt 114.3 kg
--- NOTE | 2022-06-05 14:07 | NUR ---
DC PLANNIN YRS OLD FEMALE PATIENT WAS ADMITTED FROM HOME WITH A DX OF RIGHT LOWER EXTRIMITY PAIN. PATIENT HAS A HX OF FIBROMYALGIA COPD, OBESITY DIABETES AND HTN. HEAD CT NO ACUTE INTRACRANIAL HEMORRHAGE. 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 RAPID COVID TEST NEGATIVE. ADMINISTERED ROCEPHIN IV ABX , MORPHINE FOR PAIN AND CONTINUED HOME MEDS. ORDERED PHYSICAL THERAPY EVAL. DC PLAN TO GO HOME WHEN STABLE. CM TO FOLLOW Addendum: 06/07/22 at 1420 by Kay Martel RN DC PLANNING: PATIENT HAS A DC ORDER FAXED TO [facility], RECEIVED A CALL FROM ANYA RICHARDS [facility] [id number] [facility] ACCEPTED PATIENT. PHONE # [phone]. NOTIFIED SUDHEER HAMILTON
[~2022-06-05 16:52] MED LIST changes: -CEPH500C16 PO; -CIPR500T4 PO; +FLUC100T PO; +METF-346 PO; -METF500T PO
[2022-06-05 17:03] VITALS: BP 109/73
--- NOTE | 2022-06-05 18:50 | NUR ---
dr Burroughs at bedside for evaluation
--- NOTE | 2022-06-05 19:03 | NUR ---
56/F PRESENTS TO ED WITH C/O DIZZINESS AND RIGHT SIDED HEADACHE RADIATING DOWN RIGHT SIDE OF BODY X3 DAYS. DENIES CP, SOB OR RECENT SICK CONTACTS, DENIES NUMBNESS OR TINGLING, BILATERAL DISTILLERY MILLER HELPER EQUAL, SPEAKING IN FULL CLEAR SENTENCES, PATIENT REPORTS EXPERIENCING SAME SYMPTOMS IN THE PAST, STATING "I DONT REMEMBER WHAT I WAS TOLD ABOUT IT." DR. RAHMAN AWARE OF PATIENT STATUS.
[2022-06-05] MEDS ORDERED: CYCLOBENZAPRINE 10 MG TAB PO ONE (19:05)
--- NOTE | 2022-06-05 19:13 | NUR ---
LAB BEDSIDE FOR BLOOD DRAW
[2022-06-05] MEDS ORDERED: CYCLOBENZAPRINE 10 MG TAB ONE (19:14)
--- NOTE | 2022-06-05 19:14 | NUR ---
CALL PTS SON WITH UPDATE/NURSE RESEARCH. RICHMOND ARNDT [phone]
--- NOTE | 2022-06-05 19:20 | NUR ---
PATIENT TAKEN TO CT VIA SAADIA
--- NOTE | 2022-06-05 19:22 | NUR ---
Pt report given to BHARATI RODRIGUEZ. Transfer of care at this time.
--- NOTE | 2022-06-05 19:30 | NUR ---
PT TAKEN TO CT
--- NOTE | 2022-06-05 19:45 | NUR ---
PT BACK FROM CT.
[2022-06-05 19:46] LABS: WHITE BLOOD COUNT (AUTO) 9.5 K/uL (4.8-10.8)
[2022-06-05 19:47] LABS: BASOPHILS % (AUTO) 0.7 % (0.0-2.0); EOSINOPHILS % (AUTO) 2.4 % (0.0-4.0); HEMATOCRIT 31.1 % (36-48); HEMOGLOBIN 9.7 g/dL (12.0-16.0); LYMPHOCYTES % (AUTO) 19.7 % (20.5-51.1); MEAN CORPUSCULAR HEMOGLOBIN 24 pg (27-31); MEAN CORPUSCULAR HGB CONC 31 g/dL (33-37); MEAN CORPUSCULAR VOLUME 76.6 fL (80-94); MONOCYTES % (AUTO) 6.5 % (1.7-9.3); NEUTROPHILS % (AUTO) 70.7 % (42.2-75.2); PLATELET COUNT (AUTO) 284 K/uL (140-450); RED BLOOD CELL COUNT(AUTO) 4.06 MIL/uL (4.20-5.40); RED CELL DISTRIBUTION WIDTH 16.9 % (11.6-13.7)
[2022-06-05 19:48] LABS: BASOPHILS # (AUTO) 0.1 K/uL (0.00-0.22); EOSINOPHILS # (AUTO) 0.2 K/uL (0-0.4); LYMPHOCYTES # (AUTO) 1.9 K/uL (2.5-16.5); MONOCYTES # (AUTO) 0.6 K/uL (0.8-1.0); NEUTROPHILS # (AUTO) 6.7 K/uL (1.8-7.7)
[2022-06-05 20:25] LABS: ANION GAP 17.2 (8-16); CARBON DIOXIDE 19.7 mmol/L (21-32); CHLORIDE 109 mmol/L (98-107); GLUCOSE 94 mg/dL (74-106); POTASSIUM 3.9 mmol/L (3.5-5.1); SODIUM SERUM 142 mmol/L (136-145)
[2022-06-05 20:26] LABS: ASPARTATE AMINOTRANSFERASE 9 U/L (15-37); GFR ARICAN-AMERICAN 33 mL/min (>90); TOTAL BILIRUBIN 0.1 mg/dL (0.0-1.0); UREA NITROGEN, BLOOD 33 mg/dL (7-18)
[2022-06-05 20:27] LABS: ALBUMIN 3.5 g/dL (3.4-5.0)
[2022-06-05] MEDS ORDERED: NACL 0.9% 1,000 ML IV ONE (21:05)
--- NOTE | 2022-06-05 21:16 | NUR ---
SWAB COLLECTED AND TAKEN TO LAB.
[2022-06-05] MEDS ORDERED: KETOROLAC 15 MG/ML VIAL IVP ONE (21:20)
[2022-06-05] MEDS ORDERED: KETOROLAC 15 MG/ML VIAL ONE (21:26)
--- NOTE | 2022-06-05 21:36 | NUR ---
PT AMBULATED TO WITH STEADY GAIT FOR URINE COLLECTION
--- NOTE | 2022-06-05 21:39 | NUR ---
PT BACK IN BED.
[2022-06-05] MEDS ORDERED: ACETAMINOPHEN 325 MG TAB PO PRN (22:10)
[2022-06-05] MEDS ORDERED: DOCUSATE SODIUM 100 MG GELCAP PO PRN (22:10)
[2022-06-05] MEDS ORDERED: POTASSIUM CHLORIDE 10 MEQ TABER PO PRN (22:10)
[2022-06-05] MEDS ORDERED: ONDANSETRON 4 MG/2 ML VIAL IM/IVP PRN (22:10)
[2022-06-05] MEDS ORDERED: ZOLPIDEM 5 MG TAB PO PRN (22:10)
[2022-06-05] MEDS ORDERED: guaiFENesin DM 200/20 MG-10 ML 10 ML UDC PO PRN (22:10)
[2022-06-05 22:12] LABS: APPEARANCE,URINE SLIGHTLY CLOUDY (CLEAR)
[2022-06-05 22:13] LABS: COLOR,URINE AMBER (YELLOW); UGLUCOSE NEGATIVE (NEGATIVE)
[2022-06-05 22:14] LABS: BILIRUBIN,URINE NEGATIVE (NEGATIVE); BLOOD, URINE 1+ (NEGATIVE); LEUKOCYTE ESTERASE ,URINE 2+ (NEGATIVE); NITRITE, URINE NEGATIVE (NEGATIVE)
[2022-06-05 22:51] LABS: RBC,URINE 0-5 /HPF (0-5); WBC,URINE 20-60 /HPF (0-5)
--- NOTE | 2022-06-05 23:08 | NUR ---
CALLED LAKISHA FOR REPORT, STATED HE WILL CALL BACK.
[2022-06-05 23:27] LABS: MAGNESIUM 2.1 mg/dL (1.8-2.4); PHOSPHORUS 5.7 mg/dL (2.5-4.9)
--- NOTE | 2022-06-05 23:32 | NUR ---
REPORT GIVEN TO BHARATI ANGEL.
--- NOTE | 2022-06-05 23:54 | NUR ---
Patient will be admitted to care of [facility]. Admited toMEDSURG. Will go to [id number]. Belongings list completed. Report to BHARATI ANGEL.
--- NOTE | 2022-06-05 23:55 | NUR ---
REPORT GIVEN BY ER NURSE. RECEIVED PATIENT AWAKE, ALERT AND ORIENTED X4. ORIENTED TO MST UNIT, UPDATED WHITEBOARD, RN NAMES PROVIDED. COMPLAINING OF 6/10 RIGHT LOWER BACK PAIN, WILL MEDICATED ORDERED. NO ACUTE RESPIRATORY DISTRESS NOTED. SKIN WARM AND DRY TO TOUCH. SUPRAPUBIC CATHETER IN PLACE. BED IN THE LOWEST AND LOCKED POSITION FOR SAFETY, CALL LIGHT WITHIN REACH, INSTRUCTION ON USE PROVIDED, INSTRUCTED TO CALL IF ASSISTANCE IS NEEDED, PT VERBALLY AGREED.
[2022-06-06] VITALS: BP 106/50
[2022-06-06] MEDS: HYDROcodone/APAP 7.5/325 MG 1 TAB PO PRN ×2 (00:16→08:10)
--- NOTE | 2022-06-06 02:09 | NUR ---
PATIENT RESTING COMFORTABLY IN BED. SAFETY PRECAUTION IN PLACE, CALL LIGHT WITHIN REACH.
[2022-06-06] MEDS: MORPHINE SULFATE 2 MG/ML SYR IVP PRN ×3 (03:00→18:03)
--- NOTE | 2022-06-06 06:15 | NUR ---
PATIENT IS ASLEEP. ALL NEEDS ATTENDED TO. NO S/SX OF PAIN. SAFETY PRECAUTIONS MAINTAINED DURING THE SHIFT, CALL LIHGT REMAINED WITHIN REACH. WILL ENDORSE CARE TO AM NURSE.
--- NOTE | 2022-06-06 07:04 | NUR ---
BEDSIDE REPORT GIVEN TO AM NURSE. PATIENT IS AWAKE, ALERT AND ORIENTED. DENIES PAIN AT THIS TIME. CALL LIGHT WITHIN REACH.
--- NOTE | 2022-06-06 07:06 | NUR ---
RECEIVED REPORT FROM RN RELIEF CHARGE NURSE FOR CONTINUITY OF CARE. PATIENT AWAKE NO DISTRESS NOTED. RESPIRATION EVEN AND NOT LABORED ON ROOM AIR. IV SITE ON LEFT FORE ARM LEYDA 20 SALINE LOCK. ALL SAFETY MEASURE IN PLACE.
--- NOTE | 2022-06-06 07:30 | NUR ---
PLAN OF CARE DISCUSSED AND REVIEWED WITH JOY LEDESMA, WILL CONTINUE CURRENT POINT OF CARE.
[2022-06-06 08:07] LABS: HEMATOCRIT 27.7 % (36-48); HEMOGLOBIN 8.8 g/dL (12.0-16.0); MEAN CORPUSCULAR HEMOGLOBIN 24 pg (27-31); MEAN CORPUSCULAR HGB CONC 32 g/dL (33-37); MEAN CORPUSCULAR VOLUME 76.1 fL (80-94); NEUTROPHILS % (AUTO) 62.8 % (42.2-75.2); PLATELET COUNT (AUTO) 239 K/uL (140-450); RED BLOOD CELL COUNT(AUTO) 3.64 MIL/uL (4.20-5.40); RED CELL DISTRIBUTION WIDTH 16.6 % (11.6-13.7); WHITE BLOOD COUNT (AUTO) 6.6 K/uL (4.8-10.8)
[2022-06-06 08:08] LABS: BASOPHILS # (AUTO) 0.1 K/uL (0.00-0.22); BASOPHILS % (AUTO) 0.9 % (0.0-2.0); EOSINOPHILS # (AUTO) 0.2 K/uL (0-0.4); EOSINOPHILS % (AUTO) 3.5 % (0.0-4.0); LYMPHOCYTES # (AUTO) 1.7 K/uL (2.5-16.5); MONOCYTES # (AUTO) 0.5 K/uL (0.8-1.0); MONOCYTES % (AUTO) 7.8 % (1.7-9.3); NEUTROPHILS # (AUTO) 4.2 K/uL (1.8-7.7)
[2022-06-06] MEDS: PANTOPRAZOLE 40 MG TABEC PO SCH (08:10)
--- NOTE | 2022-06-06 08:12 | NUR ---
PATIENT COMPLAIN OF PAIN ON HER BACK 06/26. MEDICATED ORDER.
[2022-06-06] MEDS ORDERED: DEXTROSE 50% 50 ML SYR IVP PRN (08:15)
[2022-06-06] MEDS ORDERED: INSULIN LISPRO SLIDING SCALE 100 UNITS/ML VIAL SUBQ PRN (08:15)
[2022-06-06] MEDS ORDERED: HYDROXYZINE HYDROCHLORIDE 25 MG TAB PO PRN (08:15)
--- NOTE | 2022-06-06 08:47 | NUR ---
PATIENT HAS BEEN SCREENED AND CATEGORIZED LOW NUTRITION RISK. PATIENT WILL BE SEEN WITHIN 7 DAYS OF ADMISSION. 06/12/[address]
[2022-06-06] MEDS ORDERED: PREGABALIN 50 MG CAP PO SCH (09:00)
[2022-06-06] MEDS ORDERED: buPROPion 150 MG TABER PO SCH (09:00)
[2022-06-06] MEDS: lisinopriL 5 MG TAB PO SCH (09:37)
[2022-06-06] MEDS: DULoxetine 30 MG CAPDR PO SCH (09:38)
[2022-06-06] MEDS: OXYBUTYNIN 5 MG TAB PO SCH (09:38)
[2022-06-06] MEDS: ATORVASTATIN 20 MG TAB PO SCH (09:38)
--- NOTE | 2022-06-06 09:53 | NUR ---
DR. MA ORDER NEW MEDICATION GIVEN TO PATIENT TOLERATED WELL AND COMPLAIN THAT NORCO NOT EFFECTIVE ASKING FOR NORCO AND ALSO STATED THAT SHE TAKE 450 MG OF WELLBUTRIN NOT [address] MA. RN AWARE FOR REQUEST FOR MORPHINE IVP.
--- NOTE | 2022-06-06 09:55 | NUR ---
PT C/O PAIN 9/10 ON HER BACK, BP CHECKED BEFORE MEDICATION ADMIN, BP 117/66 HR 97, GIVE MORPHINE 2MG/ML AT THIS TIME.
--- NOTE | 2022-06-06 10:48 | NUR ---
DR. MA RESPONDED THAT HE WILL CHANGE THE ORDER.
[2022-06-06] MEDS: BLOOD GLUCOSE MONITORING 1 DEV DEV FS SCH ×3 (11:33→20:17)
[2022-06-06 12:44] LABS: ANION GAP 22.3 (8-16); CARBON DIOXIDE 16.7 mmol/L (21-32); CREATININE 1.8 mg/dL (0.6-1.3)
--- NOTE | 2022-06-06 13:00 | NUR ---
PATIENT ON BED EATING LUNCH NO DISTRESS NOTED. PATIENT ASK FOR URINE CATHETER BAG TO CONNECT ON HER SUPRAPUBIC CATHETER. REQUEST GRANTED.
--- NOTE | 2022-06-06 14:15 | NUR ---
PATIENT WHEELED BY RADIOLOGY PERSONAL FOR CT OF LUMBAR PATIENT ON STABLE CONDITION
--- NOTE | 2022-06-06 14:25 | NUR ---
PATIENT CAME BACK FROM RADIOLOGY BUT COMPLAIN THAT 1 OF HER EARPOD MISSING. I CHECKED THE ROOM AND TO THE CT AND FOUND ON THE FLOOR OF CT.
[2022-06-06 16:00] VITALS: BP 99/53
--- NOTE | 2022-06-06 17:19 | NUR ---
BLOOD SUGAR CHECK NO COVERAGE FOR 149. COMPLAIN OF PAIN INFORM RN. DUE PATIENT REFUSED FOR NORCO AND REQUEST FOR MORPHINE.
--- NOTE | 2022-06-06 17:22 | NUR ---
BLOOD PRESSURE IS BELOW 100 RN CHECKED IT AGAIN AND INFORM HER THAT AFTER 30 MIN WE WILL CHECK AGAIN AND IF ITS ABOVE 110 THEN WE WILL GIVE MORPHINE OFFERED NORCO BUT SHE REFUSED.
--- NOTE | 2022-06-06 18:02 | NUR ---
BLOOD PRESSURE RECHECKED AND ITS 114/57 INFORM RN BUT SHE TOO BUSY GIVING REPORT FOR DISCHARGE I ASKED ANOTHER RN AND SHE GAVE MORPHINE TO PATIENT.
--- NOTE | 2022-06-06 19:16 | NUR ---
RESIDENT ALERT ORIENTED. GAVE REPORT TO POWERHOUSE MECHANIC APPRENTICE NURSE FOR CONTINUITY OF CARE.
--- NOTE | 2022-06-06 19:20 | NUR ---
RECEIVED BEDSIDE REPORT FROM DAY SHIFT RN FOR CONTINUITY OF CARE. PT IS AWAKE IN BED. PT IS AAOX4. PT IS ON RA. NOT IN ANY ACUTE DISTRESS. PT HAS SUPRAPUBIC CATHETER. PT HAS LEFT FOREARM 20 GAUGE SALINE LOCK. PT IS ABLE TO AMBULATE. PLAN OF CARE DISCUSSED. WILL CONTINUE TO MONITOR THE PT.
[2022-06-06 20:00] VITALS: BP 128/64
--- NOTE | 2022-06-06 20:17 | NUR ---
CHECKED PT BLOOD GLUCOSE ITS 129 NO COVERAGE NEEDED. ASKED PT IF SHE IS IN ANY PAIN. PT STATES SHE IS OKAY. TOLD PT TO CALL ME METHODS ANALYST LIGHT FOR ANYTHING ELSE SHE NEEDS. WILL CONTINUE TO OBSERVE THE PT.
[2022-06-07] MEDS: MORPHINE SULFATE 2 MG/ML SYR IVP PRN ×3 (00:02→12:53)
--- NOTE | 2022-06-07 00:15 | NUR ---
PT COMPLAIN OF SEVERE FLANK PAIN. PT WANTED MORPHINE AND ALSO, STATES NORCO DOES NOT HELP. MORPHINE WAS GIVEN PER MD ORDER. NO OTHER COMPLAINS. WILL CONTINUE TO MONITOR THE PT.
--- NOTE | 2022-06-07 01:03 | NUR ---
PT COMPLAINED OF ITCHING ALL OVER THE BODY. GAVE ATARAX HCL FOR ITCHING. NO OTHER COMPLAINS. WILL CONTINUE TO MONITOR THE PT.
[2022-06-07 04:00] VITALS: BP 134/74
--- NOTE | 2022-06-07 05:00 | NUR ---
PT IS SLEEPING IN BED COMFORTABLY. IN HIGH FOWLERS POSITION. PT IS NOT IN ANY RESPIRATORY DISTRESS. BREATHING EVEN AND UNLABORED. CALL LIGHT WITHIN REACH. ALL SAFETY MEASURES TAKEN. WILL CONTINUE TO MONITOR THE PT.
[2022-06-07] MEDS: BLOOD GLUCOSE MONITORING 1 DEV DEV FS SCH ×2 (06:31→11:30)
[2022-06-07 07:16] LABS: BASOPHILS % (AUTO) 0.7 % (0.0-2.0); EOSINOPHILS # (AUTO) 0.2 K/uL (0-0.4); EOSINOPHILS % (AUTO) 4.3 % (0.0-4.0); HEMATOCRIT 30.2 % (36-48); HEMOGLOBIN 9.6 g/dL (12.0-16.0); LYMPHOCYTES # (AUTO) 1.5 K/uL (2.5-16.5); LYMPHOCYTES % (AUTO) 29.2 % (20.5-51.1); MEAN CORPUSCULAR HEMOGLOBIN 24 pg (27-31); MEAN CORPUSCULAR HGB CONC 32 g/dL (33-37); MEAN CORPUSCULAR VOLUME 75.5 fL (80-94); MONOCYTES # (AUTO) 0.4 K/uL (0.8-1.0); NEUTROPHILS % (AUTO) 58.8 % (42.2-75.2); PLATELET COUNT (AUTO) 257 K/uL (140-450); RED CELL DISTRIBUTION WIDTH 16.4 % (11.6-13.7); WHITE BLOOD COUNT (AUTO) 5.1 K/uL (4.8-10.8)
--- NOTE | 2022-06-07 07:30 | NUR ---
POINT OF CARE DISCUSSED AND REVIEWED WITH JOY WILLARD.
--- NOTE | 2022-06-07 07:34 | NUR ---
ENDORSE PT TO DAY SHIFT RN FOR CONTINUITY OF CARE. PT IS STABLE.
--- NOTE | 2022-06-07 07:35 | NUR ---
RECEIVED REPORT FROM CAREER DEVELOPER NURSE FOR CONTINUITY OF CARE. PT IS SLEEPING, AROUSABLE BY VERBAL STIMULI. NO DISTRESS NOTED. RESPIRATIONS EVEN AND UNLABORED ON ROOM AIR. A&O4, ABLE TO COMMUNICATE NEEDS. PT WITH SUPRAPUBIC CATHETER IN PLACE, INTACT. IV SITE AT LFA 20G, SL. CALL LIGHT WITHIN REACH. SAFETY PRECAUTIONS IN PLACE. WILL CONTINUE TO MONITOR.
[2022-06-07 08:00] VITALS: BP 133/75
[2022-06-07] MEDS ORDERED: buPROPion 150 MG TABER PO SCH (09:00)
[2022-06-07] MEDS ORDERED: PREGABALIN 50 MG CAP PO SCH ×2 (09:00)
[2022-06-07] MEDS: lisinopriL 5 MG TAB PO SCH (09:53)
[2022-06-07] MEDS: DULoxetine 30 MG CAPDR PO SCH (09:53)
[2022-06-07] MEDS: PANTOPRAZOLE 40 MG TABEC PO SCH (09:54)
[2022-06-07] MEDS: OXYBUTYNIN 5 MG TAB PO SCH (09:54)
[2022-06-07] MEDS: ATORVASTATIN 20 MG TAB PO SCH (09:54)
--- NOTE | 2022-06-07 09:55 | NUR ---
ADMINISTERED SCHEDULED MORNING MEDS. PT TEACHING ABOUT MEDS GIVEN. PT VERBALIZED UNDERSTANDING.
--- NOTE | 2022-06-07 12:31 | NUR ---
BLOOD GLUCOSE CHECK DONE. BS 151. SLIDING SCALE INSULIN GIVEN. PT COMPLAINED OF PAIN 8/10 ON HER BACK. PRN PAIN MED TO BE ADMINISTERED BY RN ORDERED.
--- NOTE | 2022-06-07 12:47 | NUR ---
IV ABX AND MORPHINE ADMINISTERED BY BHARATI DELGADO. NO ADVERSE REACTION NOTED.
[2022-06-07 13:23] VITALS: BP 133/75
--- NOTE | 2022-06-07 13:53 | NUR ---
RE-ASSESED PAIN. PT STATED IT IS RELIEVED AND NOW 12/27. INFORMED PT ABOUT HER DC ORDER. PT STATED UNDERSTANDING. LEFT PT COMFORTABLY SITTING IN BED, USING HER CP. NO DISTRESS NOTED. CALL LIGHT WITHIN REACH. SAFETY PRECAUTIONS IN PLACE.
--- NOTE | 2022-06-07 15:05 | NUR ---
PT DC HOME. DISCUSSED DC PAPERS WITH THE PT. PHARMACY CONFIRMED CORRECT. INFORMED PT ABOUT THE HOME HEALTH SET-UP FOR HER. PT VERBALIZED UNDERSTANDING. REMOVED IV CATHETER INTACT. REMOVED IV WRIST BAND. ALL PT BELONGINGS TAKEN UPON DC. PT WHEELED OUT VIA WHEELCHAIR BY HEAD TEACHER. PT IS STABLE.
== END 2022-06-07 15:05 | disposition home or self-care (01) | DRG 347 ==
LOC: MED 16:52 → MTU 22:15
PROVIDERS: ADMIT Student in an Organized Health Care Education/Training Program; ATTEND Student in an Organized Health Care Education/Training Program
DX: M47.816 Spondylosis without myelopathy or radiculopathy, lumbar region (principal); N17.0 Acute kidney failure with tubular necrosis; E11.9 Type 2 diabetes mellitus without complications; E66.01 Morbid (severe) obesity due to excess calories; I10 Essential (primary) hypertension; D50.9 Iron deficiency anemia, unspecified; N39.0 Urinary tract infection, site not specified; M54.2 Cervicalgia; M54.9 Dorsalgia, unspecified; J44.9 Chronic obstructive pulmonary disease, unspecified; M79.7 Fibromyalgia; Z20.822 Contact with and (suspected) exposure to COVID-19; Z79.891 Long term (current) use of opiate analgesic; Z79.899 Other long term (current) drug therapy; Z68.39 Body mass index [BMI] 39.0-39.9, adult
CPT/HCPCS: 36415; 70450; 72131; 80048; 80053; 81001; 82948; 83690; 83735; 84100; 84484; 85025; 87081; 87086; 93005; 96361; 96374; 97530; 99285; J0696; J1815; J1885; J2270; J7060

== ENCOUNTER 2022-06-21 14:09 | Emergency (ER) | payer OTHER ==
[~2022-06-21] VITALS: Ht 170.2 cm; Wt 108.0 kg
[~2022-06-21 14:09] MED LIST changes: -BUPR300T70 PO; -FLUC100T PO; -OMEP20EC9 PO
--- NOTE | 2022-06-21 14:14 | NUR ---
name called no nswer at this time
[2022-06-21 14:16] VITALS: BP 155/91
--- NOTE | 2022-06-21 14:32 | NUR ---
PT AMB TO ER BED 9 W/O ASST
--- NOTE | 2022-06-21 14:45 | NUR ---
Dr Sumner at bedside for evaluation
--- NOTE | 2022-06-21 14:45 | NUR ---
Lisandra edge in [facility] - 06/21/22 at [address] MAHARAJ AT [facility]
[2022-06-21] MEDS ORDERED: MORPHINE SULFATE 4 MG/ML SYR IVP ONE (15:15)
[2022-06-21 15:17] LABS: BASOPHILS # (AUTO) 0.1 K/uL (0.00-0.22); BASOPHILS % (AUTO) 0.7 % (0.0-2.0); EOSINOPHILS # (AUTO) 0.2 K/uL (0-0.4); EOSINOPHILS % (AUTO) 2.7 % (0.0-4.0); HEMATOCRIT 34.2 % (36-48); HEMOGLOBIN 10.6 g/dL (12.0-16.0); LYMPHOCYTES # (AUTO) 1.1 K/uL (2.5-16.5); LYMPHOCYTES % (AUTO) 13.6 % (20.5-51.1); MEAN CORPUSCULAR HEMOGLOBIN 24 pg (27-31); MEAN CORPUSCULAR HGB CONC 31 g/dL (33-37); MEAN CORPUSCULAR VOLUME 75.8 fL (80-94); MONOCYTES # (AUTO) 0.4 K/uL (0.8-1.0); MONOCYTES % (AUTO) 4.9 % (1.7-9.3); NEUTROPHILS # (AUTO) 6.2 K/uL (1.8-7.7); NEUTROPHILS % (AUTO) 78.1 % (42.2-75.2); PLATELET COUNT (AUTO) 344 K/uL (140-450); RED BLOOD CELL COUNT(AUTO) 4.51 MIL/uL (4.20-5.40); RED CELL DISTRIBUTION WIDTH 18.2 % (11.6-13.7); WHITE BLOOD COUNT (AUTO) 7.9 K/uL (4.8-10.8)
--- NOTE | 2022-06-21 15:30 | NUR ---
56 y/o female w c/o concern of UTI, has suprapubic catheter in place. Reports dysuria and low back pain rated at 8/10, sharp, x2days. States similar symptoms in the past on and off x 2 months. Denies hematuria, fever, chills, nvd, sob, cp. pmh: asthma, anxiety, dm2, sleep apnea, htn, hld, fibromyalgia nka
[2022-06-21 15:34] LABS: ALBUMIN 3.6 g/dL (3.4-5.0); ANION GAP 11.6 (8-16); CARBON DIOXIDE 26.7 mmol/L (21-32); POTASSIUM 3.3 mmol/L (3.5-5.1); TOTAL BILIRUBIN 0.3 mg/dL (0.0-1.0)
--- NOTE | 2022-06-21 16:02 | NUR ---
taken to ct via w/c
[2022-06-21 17:14] LABS: APPEARANCE,URINE CLOUDY (CLEAR); BILIRUBIN,URINE NEGATIVE (NEGATIVE); BLOOD, URINE 3+ (NEGATIVE); COLOR,URINE YELLOW (YELLOW); LEUKOCYTE ESTERASE ,URINE 2+ (NEGATIVE); NITRITE, URINE NEGATIVE (NEGATIVE); UGLUCOSE NEGATIVE (NEGATIVE)
[2022-06-21] MEDS ORDERED: CEPH-588 PO (17:15)
[2022-06-21] MEDS ORDERED: ACET-8386 PO (17:15)
[2022-06-21 17:29] VITALS: BP 145/84
--- NOTE | 2022-06-21 17:29 | NUR ---
Patient discharged with v/s stable. Written and verbal after care instructions given and explained. Patient alert, oriented and verbalized understanding of instructions. Ambulatory with steady gait. All questions addressed prior to discharge. ID band removed. Patient advised to follow up with PMD. Rx of KELFEX, NORCO 5-325 given. Patient educated on indication of medication including possible reaction and side effects. Opportunity to ask questions provided and answered.
--- NOTE | 2022-06-21 17:30 | NUR ---
Chart checked and completed. The patient's care was reviewed and supervised by Tania Muñiz RN.
[2022-06-21 17:31] LABS: OTHER CASTS, URINE None Seen /LPF (None Seen); YEAST,URINE Few /HPF (None Seen)
[2022-06-21 17:32] LABS: CALCIUM OXALATE CRYSTALS,UR 0-10 /HPF (None Seen)
[2022-06-25] MEDS ORDERED: FLUC150T PO (14:11)
== END 2022-06-21 17:30 | disposition home or self-care (01) ==
LOC: MED 14:09
DX: N39.0 Urinary tract infection, site not specified (principal); J44.9 Chronic obstructive pulmonary disease, unspecified; E11.9 Type 2 diabetes mellitus without complications; I10 Essential (primary) hypertension; I25.10 Atherosclerotic heart disease of native coronary artery without angina pectoris; E03.9 Hypothyroidism, unspecified; Z79.4 Long term (current) use of insulin; Z79.899 Other long term (current) drug therapy
CPT/HCPCS: 36415; 74176; 80053; 81001; 83605; 85025; 87086; 96374; 99284; J2270

== ENCOUNTER 2022-06-24 13:01 | Emergency (ER) | payer OTHER ==
[~2022-06-24] VITALS: Ht 170.2 cm; Wt 105.7 kg
[~2022-06-24 13:01] MED LIST changes: +CEPH-588 PO
[2022-06-24 13:17] VITALS: BP 191/77
--- NOTE | 2022-06-24 13:33 | NUR ---
56 Y/O FEMALE BIB SELF PRESENTS IN ED FOR RECHECK, WAS SEEN IN THE ED FOR ABD PAIN AND UTI ON 06/21/22, PER PT HER SUPRAPUBIC CATHETER WAS NOT DRAINING. PT STATES SHE IS COLD, NOTED CHILLS, ABD PAIN AND GEN WEAKNESS. BP 191/77 PER PT SHE DID NOT TAKE HER MEDICATION TODAY NKA PMH: HTN, DM, SUPRAPUBIC CATH RX: KELFEX FOR UTI
--- NOTE | 2022-06-24 14:11 | NUR ---
MD PERDUE AT BEDSIDE FOR EVALUATION
--- NOTE | 2022-06-24 15:04 | NUR ---
16 ml on bladder scanner ermd made aware
[2022-06-24] MEDS ORDERED: FLUC200T PO (15:05)
--- NOTE | 2022-06-24 15:40 | NUR ---
Patient discharged with v/s stable. Written and verbal after care instructions FOR UTI given and explained. Patient alert, oriented and verbalized understanding of instructions. Ambulatory with steady gait. All questions addressed prior to discharge. ID band removed. Patient advised to follow up with PMD. Rx of DIFLUCAN given.Opportunity to ask questions provided and answered.
[2022-06-25] MEDS ORDERED: FLUC150T PO (14:11)
== END 2022-06-24 15:40 | disposition home or self-care (01) ==
LOC: MED 13:01
DX: N39.0 Urinary tract infection, site not specified (principal); B49 Unspecified mycosis; I10 Essential (primary) hypertension; E11.9 Type 2 diabetes mellitus without complications; E03.9 Hypothyroidism, unspecified; J44.9 Chronic obstructive pulmonary disease, unspecified; I25.10 Atherosclerotic heart disease of native coronary artery without angina pectoris; Z79.4 Long term (current) use of insulin; Z79.899 Other long term (current) drug therapy; Z90.49 Acquired absence of other specified parts of digestive tract; Z98.890 Other specified postprocedural states
CPT/HCPCS: 99283

== ENCOUNTER 2022-07-19 18:23 | Emergency (ER) | payer OTHER ==
[~2022-07-19] VITALS: Ht 170.2 cm; Wt 112.0 kg
[~2022-07-19 18:23] MED LIST changes: -CEPH-588 PO; +FLUC150T PO; +FLUC200T PO
[2022-07-19 18:29] VITALS: BP 161/96
== END 2022-07-19 21:48 | disposition left against medical advice (07) ==
LOC: MED 18:23
DX: R06.02 Shortness of breath (principal); J44.9 Chronic obstructive pulmonary disease, unspecified; E11.9 Type 2 diabetes mellitus without complications; I10 Essential (primary) hypertension; E07.9 Disorder of thyroid, unspecified; Z79.899 Other long term (current) drug therapy; Z53.21 Procedure and treatment not carried out due to patient leaving prior to being seen by health care provider; Z79.84 Long term (current) use of oral hypoglycemic drugs